=== PATIENT | female | born 1980 | race Caucasian/White ===

== ENCOUNTER 2016-11-10 19:18 | Emergency (ER) | payer OTHER ==
[2016-11-10] MEDS ORDERED: SODIUM CHLORIDE 0.9% 1,000 ML IV STA (19:23)
--- NOTE | 2016-11-10 19:45 | ED ---
Chest Pain HPI - General Chief Complaint: Chest Pain Stated Complaint: Chest Pain Time Seen by Provider: 11/10/16 19:23 Source: EMS, RN notes reviewed Mode of arrival: EMS Limitations: no limitations - History of Present Illness Initial Comments: Patient is a 36-year-old female presents to the emergency room for evaluation of chest pain. Patient states having on and off chest pain for the past week. Patient states chest pain became worse around 11 AM this morning. Patient states she went to [facility] and they sent her here for further evaluation. Patient states chest pain is midsternal feels a pressure-like type pain. Patient states she is having 5 out of 10 pain. Patient states she's been given aspirin and nitroglycerin and the EMS with little relief of symptoms. Patient states she does feel short of breath. Patient does admit that she smokes 1 pack per day. Patient does state she has a history of chest pain. Patient states she has followed up with a field attendant a few months ago and received an echocardiogram with no significant findings. Patient states she takes Topamax for migraines and Prilosec daily. Patient states she hasn't taken the Prilosec for the past few days. Patient denies nausea or vomiting. Patient denies headache or dizziness. Patient denies paresthesias. Patient denies recent trauma to her chest. Patient denies any recent heavy lifting. Patient denies fevers or chills. - Related Data Home Medications Medication Instructions Recorded Confirmed Calcium Carbonate [Tums] 500 mg PO QID PRN 11/10/16 11/10/16 Omeprazole Unknown Strength 1 cap PO DAILY PRN 11/10/16 11/10/16 Topiramate [Topamax] 50 mg PO BID 11/10/16 11/10/16 Allergies Allergy/AdvReac Type Severity Reaction Status Date / Time codeine Allergy Itching Verified 11/10/16 19:51 Sulfa (Sulfonamide Allergy Anaphylaxis Verified 11/10/16 19:51 Antibiotics) Review of Systems ROS Statement: Those systems with pertinent positive or pertinent negative responses have been documented in the HPI. ROS Other: All systems not noted in ROS Statement are negative. EKG Findings - EKG Comments: EKG Findings:: Normal sinus rhythm with sinus arrhythmia, ventricular rate 76 bpm, MO interval 144 ms, QRS duration 72 ms, QT/QTC 362/470 ms Past Medical History Past Medical History: GERD/Reflux, Renal Disease Additional Past Medical History / Comment(s): ANEMIA, PVC'S, MURMUR DETECTED WHEN PT WAS , UTI , STRESS INCONT. History of Any Multi-Drug Resistant Organisms: None Reported Past Surgical History: Cholecystectomy, Tonsillectomy Additional Past Surgical History / Comment(s): LAPAROSCOPY Past Anesthesia/Blood Transfusion Reactions: Previous Problems w/ Anesthesia Additional Past Anesthesia/Blood Transfusion Reaction / Comment(s): BP BOTTOMED OUT AFTER VERSED GIVEN 0/T Past Psychological History: No Psychological Hx Reported Smoking Status: Current every day smoker Past Alcohol Use History: Occasional Past Drug Use History: None Reported - Past Family History Sister(s) Family Medical History: Cancer Additional Family Medical History / Comment(s): LUNG CANCER Mother Family Medical History: Cancer Additional Family Medical History / Comment(s): LUNG CA Father Family Medical History: Myocardial Infarction ([place]) Additional Family Medical History / Comment(s): AT AGE 52 FROM MASSIVE [place] General Exam - General Exam Comments Initial Comments: Sitting in exam room, no distress. Limitations: no limitations General appearance: alert, in no apparent distress Head exam: Present: atraumatic, normocephalic, normal inspection Eye exam: Present: normal appearance Pupils: Present: normal accommodation ENT exam: Present: normal exam Neck exam: Present: normal inspection, full ROM. Absent: tenderness, lymphadenopathy Respiratory exam: Present: normal lung sounds bilaterally. Absent: respiratory distress, chest wall tenderness Cardiovascular Exam: Present: regular rate, normal rhythm, normal heart sounds GI/Abdominal exam: Present: soft, normal bowel sounds. Absent: distended, tenderness, guarding, rebound, rigid Extremities exam: Present: normal inspection Back exam: Present: normal inspection Neurological exam: Present: alert, oriented X3, CN II-XII intact, normal gait Psychiatric exam: Present: normal affect, normal mood Skin exam: Present: warm, dry, intact, normal color. Absent: rash Course Vital Signs 11/10/16 11/10/16 11/10/16 19:20 19:23 19:48 Temperature 98.2 F Pulse Rate 95 80 Respiratory 18 18 18 Rate Blood Pressure 118/66 122/76 O2 Sat by Pulse 100 100 Oximetry 11/10/16 21:16 Temperature 97.8 F Pulse Rate 66 Respiratory 16 Rate Blood Pressure 102/63 O2 Sat by Pulse 100 Oximetry Chest Pain MDM - MDM Patient is a 36-year-old female presents to the emergency room for evaluation of chest pain. Patient does have a history of chest pain. Patient currently sees a field attendant. Cardiac enzymes within normal limits. Chest x-ray shows no acute findings. Patient declined anything for pain while she was here. Discussed results with patient. Advised patient to follow-up with field attendant for further evaluation. Patient states she understands everything that was discussed with her. Return parameters discussed. Case discussed with Dr. Francis who agrees with the treatment plan. Disposition Clinical Impression: Chest pain Disposition: HOME SELF-CARE Condition: Good Instructions: Chest Pain (ED) Additional Instructions: Please follow-up with primary care provider or field attendant for further evaluation. If any new symptom arises or symptoms worsen, return to ER as soon as possible. Referrals: Michael Potter MD [Primary Care Provider] - 1-2 days Time of Disposition: 21:29
[2016-11-10 19:55] LABS: Basophils # (A) 0.1 k/uL (0-0.2); Basophils % (A) 1 %; CH 29.8; CHCM 33.6; Eosinophils # (A) 0.1 k/uL (0-0.7); Eosinophils % (A) 2 %; HCT 36.4 % (34.0-46.0); HDW 2.46; HGB 12.1 gm/dL (11.4-16.0); Luc # (Auto) 0.12; Luc % (Auto) 1; Lymphocytes # (A) 2.6 k/uL (1.0-4.8); Lymphocytes % (A) 31 %; MCH 29.6 pg (25.0-35.0); MCHC 33.1 g/dL (31.0-37.0); MCV 89.4 fL (80.0-100.0); Mean Platelet Volume 7.6; Monocytes # (A) 0.4 k/uL (0-1.0); Monocytes % (A) 5 %; Neutrophils # (A) 5.1 k/uL (1.3-7.7); Neutrophils % (A) 61 %; RBC 4.08 m/uL (3.80-5.40); RDW 14.9 % (11.5-15.5); WBC 8.4 k/uL (3.8-10.6); WBC (Perox) 8.18
[2016-11-10 20:06] LABS: ALT 26 U/L (9-52); AST 19 U/L (14-36); Alkaline Phosphatase 92 U/L (38-126); Amylase 46 U/L (30-110); Anion Gap 8 mmol/L; Blood Urea Nitrogen 5 mg/dL (7-17); Calcium 9.3 mg/dL (8.4-10.2); Carbon Dioxide 23 mmol/L (22-30); Chloride 108 mmol/L (98-107); Glucose 90 mg/dL (74-99); Non-African American GFR(MDRD) >60 (>60 ml/min/1.73 sqM); Potassium 4.1 mmol/L (3.5-5.1); Sodium 139 mmol/L (137-145); Total Bilirubin 0.3 mg/dL (0.2-1.3); Total Protein 6.4 g/dL (6.3-8.2)
[2016-11-10 20:07] LABS: Partial Thromboplastin Time 22.8 sec (22.0-30.0)
--- NOTE | 2016-11-10 20:15 | XR ---
EXAMINATION TYPE: XR chest 2V DATE OF EXAM: 11/10/2016 COMPARISON: 02/25/2016 HISTORY: Chest pain TECHNIQUE: Frontal and lateral views of the chest are obtained. FINDINGS: Heart and mediastinum are normal. Lungs are clear. Diaphragm is normal. There are chest le ads. Bony thorax is intact. IMPRESSION: Normal chest. No change.
[2016-11-10 20:16] LABS: Creatine Kinase 99 U/L (30-135)
[2016-11-10 20:28] LABS: Creatine Kinase MB <0.2 ng/mL (0.0-2.4); Troponin I <0.012 ng/mL (0.000-0.034)
[2016-11-10 22:09] VITALS: BP 100/66; PULSE 68; RESP 18; TEMP 98.2
== END 2016-11-10 22:09 | disposition home or self-care (01) ==
LOC: EC 19:18
DX: R07.9 Chest pain, unspecified (principal); F17.200 Nicotine dependence, unspecified, uncomplicated; Z88.2 Allergy status to sulfonamides; Z88.5 Allergy status to narcotic agent; Z79.899 Other long term (current) drug therapy
CPT/HCPCS: 36415; 71020; 80053; 82150; 82550; 82553; 83690; 83735; 84484; 85025; 85379; 85610; 85730; 93005; 96360; 99285

== ENCOUNTER → 2017-12-12 | Outpatient (CLI) | payer OTHER ==
--- NOTE | 2017-12-13 08:26 | US ---
EXAMINATION TYPE: US pelvic complete DATE OF EXAM: 12/12/2017 COMPARISON: NONE CLINICAL HISTORY: N93.8 dysfunctional uterine bleeding. DUB TECHNIQUE: Transabdominal (TA). Transabdominal sonographic images of the pelvis were acquired. EXAM MEASUREMENTS: Uterus: 7.3 x 4.3 x 5.6 cm Endometrial Stripe: 0.87 cm Right Ovary: 3.6 x 1.7 x 2.0 cm Left Ovary: 3.6 x 1.7 x 2.9 cm 1. Uterus: Anteverted wnl 2. Endometrium: wnl 3. Right Ovary: wnl 4. Left Ovary: wnl 5. Bilateral Adnexa: wnl 6. Posterior cul-de-sac: wnl IMPRESSION: 1. No acute process.
== END | disposition home or self-care (01) ==
LOC: RADUSMAIN 17:11
PROVIDERS: ATTEND Obstetrics & Gynecology
DX: N93.8 Other specified abnormal uterine and vaginal bleeding (principal)
CPT/HCPCS: 36415; 76856; 83001; 83002; 84146

== ENCOUNTER → 2017-12-27 | Outpatient (CLI) | payer OTHER ==
[2017-12-27 12:45] LABS: Cholesterol 195 mg/dL (<200); Glucose 75 mg/dL (74-99); HDL Cholesterol 66 mg/dL (40-60); LDL Cholesterol,Calculated 115 mg/dL (0-99); Triglycerides 68 mg/dL (<150)
[2017-12-27 19:53] LABS: DHEA Sulfate 193.7 ug/dL (26.0-430.0); Sex Horm Bind Glob 69.3 nmol/L (10.84-180.00)
[2017-12-27 19:57] LABS: Progesterone 0.2 ng/mL
== END | disposition home or self-care (01) ==
LOC: LABWHC1 11:09
PROVIDERS: ATTEND Obstetrics & Gynecology
DX: N93.8 Other specified abnormal uterine and vaginal bleeding (principal)
CPT/HCPCS: 36415; 80061; 82627; 82670; 82947; 83001; 83002; 83525; 84144; 84270; 84402

== ENCOUNTER → 2018-02-02 | Outpatient (CLI) | payer OTHER ==
[2018-02-02 15:38] LABS: Basophils % (A) 0 %; Eosinophils # (A) 0.2 k/uL (0-0.7); Eosinophils % (A) 2 %; HCT 42.9 % (34.0-46.0); HGB 13.7 gm/dL (11.4-16.0); Hypochromasia Slight; Lymphocytes # (A) 2.5 k/uL (1.0-4.8); Lymphocytes % (A) 31 %; MCH 30.6 pg (25.0-35.0); MCV 95.8 fL (80.0-100.0); Mean Platelet Volume 7.5; Monocytes # (A) 0.4 k/uL (0-1.0); Monocytes % (A) 5 %; Neutrophils # (A) 4.8 k/uL (1.3-7.7); Neutrophils % (A) 60 %; Platelet Count 346 k/uL (150-450); RBC 4.48 m/uL (3.80-5.40); RDW 14.6 % (11.5-15.5)
== END ==
LOC: LABPAT 14:53
PROVIDERS: ATTEND Obstetrics & Gynecology
DX: Z01.812 Encounter for preprocedural laboratory examination (principal)
CPT/HCPCS: 85025

== ENCOUNTER 2018-02-09 07:54 | Day surgery (SDC) | payer OTHER ==
[2018-01-20 15:57] VITALS: BMI 27.3
--- NOTE | 2018-01-25 08:43 | P.HPOB ---
History of Present Illness H&P Date: 01/25/18 Chief Complaint: Dysfunctional uterine bleeding Mayelin is a 29-year-old female with dysfunctional uterine bleeding. Symptoms have been worsening over the last several months and bleeding is very heavy and very disruptive. She is therefore scheduled for a D&C with hysteroscopy to try and verified no potential hyperplastic tissue. Risks/benefits/alternatives to this procedure were discussed with the patient in detail and all questions were answered for her prior to proceeding to the operating room. Past Medical History Past Medical History: Chest Pain / Angina, GERD/Reflux, Renal Disease Additional Past Medical History / Comment(s): LEFT RENAL ATROPHY., ANEMIA, PVC'S , DDD., STATES HAVING 2 MENSTRUAL PERIOD /MONTH. History of Any Multi-Drug Resistant Organisms: None Reported Past Surgical History: Bladder Surgery, Cholecystectomy, Tonsillectomy, Tubal Ligation Additional Past Surgical History / Comment(s): LAPAROSCOPY, BLADDER SUSPENSION, INTERIOR WALL REPAIR. Past Anesthesia/Blood Transfusion Reactions: Previous Problems w/ Anesthesia Additional Past Anesthesia/Blood Transfusion Reaction / Comment(s): BP BOTTOMED OUT AFTER VERSED GIVEN Past Psychological History: No Psychological Hx Reported Smoking Status: Current every day smoker Past Alcohol Use History: Occasional Additional Past Alcohol Use History / Comment(s): STARTED SMOKING AT AGE 15., SMOKES 3-7 CIG PER DAY. Past Drug Use History: None Reported - Past Family History Sister(s) Family Medical History: Cancer Additional Family Medical History / Comment(s): LUNG CANCER Mother Family Medical History: Cancer Additional Family Medical History / Comment(s): LUNG CA Father Family Medical History: Cancer, Myocardial Infarction ([place]) Additional Family Medical History / Comment(s): AT AGE 52 FROM [place]ASSIVE [place] Medications and Allergies Home Medications Medication Instructions Recorded Confirmed Type HYDROcodone/APAP 5-325MG [[place] 1 tab PO DIRECTED PRN 01/20/18 01/20/18 History 5-325] Ibuprofen [Motrin] 800 mg PO DAILY PRN 01/20/18 01/20/18 History Topiramate [Topamax] 200 mg PO BID 01/20/18 01/20/18 History Allergies Allergy/AdvReac Type Severity Reaction Status Date / Time codeine Allergy Itching Verified 01/20/18 15:35 Sulfa (Sulfonamide Allergy Anaphylaxis Verified 01/20/18 15:35 Antibiotics) adhesive tape AdvReac Unknown TEARS SKIN Verified 01/20/18 15:57 Exam Osteopathic Statement: *. No significant issues noted on an osteopathic structural exam other than those noted in the History and Physical/Consult. - OBG Physical Exam Breast: both: normal (no masses) Abdomen: bowel sounds normal, no diffuse tenderness, no bruit present, no guarding noted, no hepatomegaly, no splenomegaly, no mass Vulva: both: normal Vagina: normal moisture, no discharge Cervix: no lesion, no discharge Uterus: normal size, normal contour Adnexa: both: normal Anus/Rectum: normal perianal skin, no rectal mass, no hemorrhoids, heme negative
[~2018-02-09 07:54] MED LIST: DEXAMETHASONE SOD PHOSPHATE 10 MG/ML 1 ML VIAL IV ONE; LACTATED RINGERS 1,000 ML IV SCH; ONDANSETRON 4 MG/2 ML VIAL IVP ONE; Pre Op ABX Message 1 EACH MISC MISCELLANE ONE; fentaNYL (PF) 50 MCG/ML 2 ML AMP IV PRN
[2018-02-09] MEDS ORDERED: LIDOCAINE 1% 20 ML VIAL (10MG/ML) FOR IV START INTRADERMA ONE (08:46)
--- NOTE | 2018-02-09 09:12 | P.HPOB ---
History of Present Illness H&P Date: 02/09/18 Chief Complaint: Menorrhagia/dysfunctional uterine bleeding Mayelin is a 37-year-old female with heavy irregular bleeding. She has had 2 periods a month each month the last at least 6 months and while her ultrasound labs have been unremarkable we are planning a D&C with hysteroscopy to rule out any other pathology. Risks/benefits/alternatives were reviewed with the patient in detail and all questions were answered for her prior to proceeding to the operating room. Past Medical History Past Medical History: Chest Pain / Angina, GERD/Reflux, Renal Disease Additional Past Medical History / Comment(s): LEFT RENAL ATROPHY., ANEMIA, PVC'S , DDD., STATES HAVING 2 MENSTRUAL PERIOD /MONTH, currently w/cold & sinus congestion-seeing PCP today History of Any Multi-Drug Resistant Organisms: None Reported Past Surgical History: Bladder Surgery, Cholecystectomy, Tonsillectomy, Tubal Ligation Additional Past Surgical History / Comment(s): LAPAROSCOPY, BLADDER SUSPENSION, INTERIOR WALL REPAIR. Past Anesthesia/Blood Transfusion Reactions: Previous Problems w/ Anesthesia Additional Past Anesthesia/Blood Transfusion Reaction / Comment(s): BP BOTTOMED OUT AFTER VERSED GIVEN Smoking Status: Current every day smoker - Past Family History Sister(s) Family Medical History: Cancer Additional Family Medical History / Comment(s): LUNG CANCER Mother Family Medical History: Cancer Additional Family Medical History / Comment(s): LUNG CA Father Family Medical History: Cancer, Myocardial Infarction ([place]) Additional Family Medical History / Comment(s): AT AGE 52 FROM [place]IVE [place] Medications and Allergies Home Medications Medication Instructions Recorded Confirmed Type HYDROcodone/APAP 5-325MG [[place] 1 tab PO DIRECTED PRN 01/20/18 02/09/18 History 5-325] Ibuprofen [Motrin] 800 mg PO DAILY PRN 01/20/18 02/08/18 History Topiramate [Topamax] 200 mg PO BID 01/20/18 02/09/18 History Allergies Allergy/AdvReac Type Severity Reaction Status Date / Time codeine Allergy Itching Verified 02/09/18 08:22 Sulfa (Sulfonamide Allergy Anaphylaxis Verified 02/09/18 08:22 Antibiotics) adhesive tape AdvReac Unknown TEARS SKIN Verified 02/09/18 08:22 Exam Osteopathic Statement: *. No significant issues noted on an osteopathic structural exam other than those noted in the History and Physical/Consult. Vital Signs Temp Pulse Resp BP Pulse Ox 02/09/18 08:23 98 F 77 16 115/80 100 - OBG Physical Exam Breast: both: normal (no masses) Abdomen: bowel sounds normal, no diffuse tenderness, no bruit present, no guarding noted, no hepatomegaly, no splenomegaly, no mass Vulva: both: normal Vagina: normal moisture, no discharge Cervix: no lesion, no discharge Uterus: normal size, normal contour Adnexa: both: normal Anus/Rectum: normal perianal skin, no rectal mass, no hemorrhoids, heme negative
[2018-02-09] MEDS ORDERED: MIDAZOLAM 2 MG/2 ML VIAL IV ONE (09:28)
[2018-02-09] MEDS ORDERED: MORPHINE SULFATE 10 MG/ML SYRINGE ONE (10:10)
[2018-02-09] MEDS ORDERED: KETOROLAC 30 MG/ML 1 ML VIAL ONE (10:10)
[2018-02-09] MEDS ORDERED: MIDAZOLAM 2 MG/2 ML VIAL ONE (10:10)
[2018-02-09] MEDS ORDERED: fentaNYL (PF) 50 MCG/ML 2 ML AMP ONE (10:10)
--- NOTE | 2018-02-09 10:34 | P.OP ---
Date of Procedure: 02/09/18 Preoperative Diagnosis: Dysfunctional uterine bleeding Postoperative Diagnosis: Same Procedure(s) Performed: D&C with hysteroscopy Anesthesia: PABLO SILVA Surgeon: Farooq Valdes Estimated Blood Loss (ml): 5 Pathology: other (Uterine curettings) Condition: stable Disposition: same day Operative Findings: Tissue pathology pending Description of Procedure: Patient was taken to the operating suite where a general anesthetic was found be adequate. She was prepped and draped in the normal sterile fashion and placed in the dorsal lithotomy position initially a weighted speculum was inserted into the vagina and the anterior lip of cervix was identified and grasped with Allis clamp. Cervix was then dilated and camera was inserted. Proliferative endometrium with possible small polyp was noted therefore camera was removed and sharp curettings of endometrium were obtained. All tissues collected and placed on Telfa and sent to pathology for evaluation. Once this was accomplished all incidents removed sponge, lap, needle counts were all correct 2. Patient was then taken to the recovery room in stable and satisfactory condition. Plan - Discharge Summary New Discharge Prescriptions: New Ibuprofen [Motrin] 600 mg PO Q6HR PRN #30 tab PRN Reason: Pain No Action HYDROcodone/APAP 5-325MG [[place] 5-325] 1 tab PO DIRECTED PRN PRN Reason: Migraine Headache Topiramate [Topamax] 200 mg PO BID Ibuprofen [Motrin] 800 mg PO DAILY PRN PRN Reason: Pain Discharge Medication List HYDROcodone/APAP 5-325MG [[place] 5-325] 1 tab PO DIRECTED PRN 01/20/18 [ History] Ibuprofen [Motrin] 800 mg PO DAILY PRN 01/20/18 [History] Topiramate [Topamax] 200 mg PO BID 01/20/18 [History] Ibuprofen [Motrin] 600 mg PO Q6HR PRN #30 tab 02/09/18 [Rx] Follow up Appointment(s)/Referral(s): Farooq Valdes DO [Doctor of Osteopathic Medicine] - 10 Days Activity/Diet/Wound Care/Special Instructions: No heavy lifting, limit stairs and driving, and pelvic rest. If any high temperatures, heavy bleeding, or severe pain call my office Discharge Disposition: HOME SELF-CARE
[2018-02-09 10:51] VITALS: TEMP 97.4
[2018-02-09 10:54] VITALS: RESP 16
[2018-02-09] MEDS ORDERED: HYDROmorphone 1 MG/ML 1 ML SYRINGE IVP ONE ×2 (10:59→11:05)
[2018-02-09 11:28] VITALS: PULSE 68
[2018-02-09 11:50] VITALS: BP 101/58
[2018-02-09] MEDS ORDERED: HYDROcodone/APAP 5-325MG 1 EACH TAB PO ONE (12:09)
== END 2018-02-09 12:50 | disposition home or self-care (01) ==
LOC: OR 07:54
PROVIDERS: ATTEND Obstetrics & Gynecology
DX: N93.8 Other specified abnormal uterine and vaginal bleeding (principal); K21.9 Gastro-esophageal reflux disease without esophagitis; F17.210 Nicotine dependence, cigarettes, uncomplicated; I49.3 Ventricular premature depolarization; D64.9 Anemia, unspecified; Z98.51 Tubal ligation status; Z79.899 Other long term (current) drug therapy; Z88.5 Allergy status to narcotic agent; Z88.2 Allergy status to sulfonamides; Z91.048 Other nonmedicinal substance allergy status
CPT/HCPCS: 81025; 88305; 58558; J2250; J1100; J2270; J2405; J3010; J1885; J1170

== ENCOUNTER 2018-03-28 00:05 | Observation (INO) | payer OTHER ==
[2018-03-28] MEDS ORDERED: ASPIRIN 81 MG PO STA (00:16)
[2018-03-28] MEDS ORDERED: NITROGLYCERIN SL TABS 0.4 MG TAB SUBLINGUAL STA (00:40)
[2018-03-28 00:46] LABS: Basophils # (A) 0.1 k/uL (0-0.2); Basophils % (A) 1 %; Eosinophils # (A) 0.2 k/uL (0-0.7); Eosinophils % (A) 2 %; HCT 42.8 % (34.0-46.0); HGB 13.5 gm/dL (11.4-16.0); Lymphocytes # (A) 3.1 k/uL (1.0-4.8); Lymphocytes % (A) 30 %; MCHC 31.6 g/dL (31.0-37.0); Monocytes # (A) 0.6 k/uL (0-1.0); Monocytes % (A) 6 %; Neutrophils # (A) 6.2 k/uL (1.3-7.7); Neutrophils % (A) 60 %; Platelet Count 404 k/uL (150-450); RDW 14.1 % (11.5-15.5); WBC 10.4 k/uL (3.8-10.6)
[2018-03-28 00:54] LABS: ALT 24 U/L (9-52); AST 18 U/L (14-36); Albumin 3.9 g/dL (3.5-5.0); Alkaline Phosphatase 58 U/L (38-126); Anion Gap 8 mmol/L; Blood Urea Nitrogen 7 mg/dL (7-17); Calcium 9.2 mg/dL (8.4-10.2); Carbon Dioxide 22 mmol/L (22-30); Chloride 108 mmol/L (98-107); Glucose 103 mg/dL (74-99); Lipase 96 U/L (23-300); Potassium 3.8 mmol/L (3.5-5.1); Sodium 138 mmol/L (137-145); Total Bilirubin 0.2 mg/dL (0.2-1.3); Total Protein 6.5 g/dL (6.3-8.2)
[2018-03-28 00:59] LABS: Prothrombin Time 9.8 sec (9.0-12.0)
--- NOTE | 2018-03-28 01:06 | XR ---
EXAMINATION TYPE: XR chest 2V DATE OF EXAM: 03/28/2018 COMPARISON: 11/10/2016 HISTORY: Chest pain TECHNIQUE: Frontal and lateral views of the chest are obtained. FINDINGS: Heart and mediastinum are normal. Lungs are clear. Diaphragm is normal. Bony thorax appear s normal. There are chest leads. IMPRESSION: Normal chest. No change.
[2018-03-28 01:07] LABS: Creatine Kinase 102 U/L (30-135)
--- NOTE | 2018-03-28 01:17 | ED ---
Chest Pain HPI - General Source: patient, RN notes reviewed Mode of arrival: ambulatory Limitations: no limitations <Cachorro Vasquez - Last Filed: 03/28/18 03:44> <Karen Mohan - Last Filed: 04/01/18 21:40> - General Chief Complaint: Chest Pain Stated Complaint: chest pain Time Seen by Provider: 03/28/18 00:16 - History of Present Illness Initial Comments: This a 37-year-old female presents emergency Department chief complaint of left- sided chest pain. Patient states pain started one hour prior arrival. She states she was just sitting down talking with the pain started. She states it feels 6 sitting on her chest currently in the central to left-sided and radiates her left shoulder. Patient denies any nausea, vomiting or diaphoresis , headache or dizziness. Patient states she is a daily smoker denies any current shortness breath this time. Patient denies history of hypertension, hyperlipidemia or diabetes. Patient states she does see cardiology for palpitations in tachycardia. Patient states that she has stress test but does not know the results states that she also had an echo which she believes she was told that she had regurgitation. (Cachorro Vasquez) - Related Data Home Medications Medication Instructions Recorded Confirmed HYDROcodone/APAP 5-325MG [[place] 1 tab PO DAILY PRN 01/20/18 03/28/18 5-325] Topiramate [Topamax] 200 mg PO DAILY 01/20/18 03/28/18 Allergies Allergy/AdvReac Type Severity Reaction Status Date / Time codeine Allergy Itching Verified 03/28/18 08:20 Sulfa (Sulfonamide Allergy Anaphylaxis Verified 03/28/18 08:20 Antibiotics) adhesive tape AdvReac Unknown TEARS SKIN Verified 03/28/18 08:20 Review of Systems ROS Other: All systems not noted in ROS Statement are negative. <Cachorro Vasquez - Last Filed: 03/28/18 03:44> ROS Other: All systems not noted in ROS Statement are negative. <Karen Mohan - Last Filed: 04/01/18 21:40> ROS Statement: Those systems with pertinent positive or pertinent negative responses have been documented in the HPI. EKG Findings - EKG Comments: EKG Findings:: EKG performed at 0:19 sinus tachycardia rate of 11 [place] 146 QRS 74 QT/QTC 342/443. Repeat EKG performed at 3:19 normal sinus rhythm rate of 63 [place] 152 QRS 74 QT/QTC 396/45 slight deepening of the inverted T waves noted T3 <Cachorro Vasquez - Last Filed: 03/28/18 03:44> Past Medical History Past Medical History: Chest Pain / Angina, GERD/Reflux, Renal Disease Additional Past Medical History / Comment(s): LEFT RENAL ATROPHY., ANEMIA, PVC'S , DDD., STATES HAVING 2 MENSTRUAL PERIOD /MONTH. History of Any Multi-Drug Resistant Organisms: None Reported Past Surgical History: Bladder Surgery, Cholecystectomy, Tonsillectomy, Tubal Ligation Additional Past Surgical History / Comment(s): LAPAROSCOPY, BLADDER SUSPENSION, INTERIOR WALL REPAIR. Past Anesthesia/Blood Transfusion Reactions: Previous Problems w/ Anesthesia Additional Past Anesthesia/Blood Transfusion Reaction / Comment(s): BP BOTTOMED OUT AFTER VERSED GIVEN Past Psychological History: No Psychological Hx Reported Smoking Status: Current every day smoker Past Alcohol Use History: Occasional Past Drug Use History: None Reported - Past Family History Sister(s) Family Medical History: Cancer Additional Family Medical History / Comment(s): LUNG CANCER Mother Family Medical History: Cancer Additional Family Medical History / Comment(s): LUNG CA Father Family Medical History: Cancer, Myocardial Infarction ([place]) Additional Family Medical History / Comment(s): AT AGE 52 FROM MASSIVE [place] <Cachorro Vasquez M - Last Filed: 03/28/18 03:44> - Past Family History Sister(s) Family Medical History: Cancer Additional Family Medical History / Comment(s): Patient has 2 sisters, one from brain cancer and one from lung cancer. Mother Family Medical History: Cancer Additional Family Medical History / Comment(s): Mother of lung cancer at age 71. Father Family Medical History: Cancer, Myocardial Infarction ([place]) Additional Family Medical History / Comment(s): AT AGE 52 FROM MASSIVE [place] Brother(s) Additional Family Medical History / Comment(s): Patient has 1 brother that is alive with history of hypertension and has history of myocardial infarction. Patient has 6 children, 3 boys and 3 girls with no major medical problems. <Karen Mohan - Last Filed: 04/01/18 21:40> General Exam Limitations: no limitations General appearance: alert, in no apparent distress Head exam: Present: atraumatic, normocephalic, normal inspection Neck exam: Present: normal inspection. Absent: tenderness, meningismus, lymphadenopathy Respiratory exam: Present: normal lung sounds bilaterally. Absent: respiratory distress, wheezes, rales, rhonchi, stridor, chest wall tenderness Cardiovascular Exam: Present: normal rhythm, tachycardia, normal heart sounds. Absent: systolic murmur, diastolic murmur, rubs, gallop, clicks GI/Abdominal exam: Present: soft, normal bowel sounds. Absent: distended, tenderness, guarding, rebound, rigid <Cachorro Vasquez - Last Filed: 03/28/18 03:44> Vital Signs 03/28/18 03/28/18 03/28/18 00:11 00:15 01:04 Temperature 98.2 F Pulse Rate 104 H 92 Respiratory 18 22 18 Rate Blood Pressure 114/71 102/76 O2 Sat by Pulse 100 99 Oximetry 03/28/18 03/28/18 03/28/18 01:30 02:00 02:30 Temperature Pulse Rate 93 78 75 Respiratory Rate Blood Pressure 102/76 104/63 93/67 O2 Sat by Pulse 99 98 99 Oximetry 03/28/18 03/28/18 03/28/18 03:00 03:30 04:00 Temperature Pulse Rate 94 69 78 Respiratory Rate Blood Pressure 112/69 98/73 108/79 O2 Sat by Pulse 98 99 Oximetry 03/28/18 04:05 Temperature Pulse Rate Respiratory 18 Rate Blood Pressure O2 Sat by Pulse Oximetry Chest Pain MDM <Cachorro Vasquez - Last Filed: 03/28/18 03:44> <Karen Mohan - Last Filed: 04/01/18 21:40> - MDM I personally saw and examined the patient. I reviewed and agree with the mid- level provider findings including all diagnostic interpretations and treatment plans as written unless otherwise stated. I was present for childs portions of any procedures performed. We'll plan for admission (Karen Mohan) Disposition <Cachorro Vasquez - Last Filed: 03/28/18 03:44> <Karen Mohan - Last Filed: 04/01/18 21:40> Clinical Impression: Chest pain Disposition: ADMITTED IP TO THIS HOSP
[2018-03-28 01:20] LABS: Creatine Kinase MB 0.4 ng/mL (0.0-2.4); Troponin I <0.012 ng/mL (0.000-0.034)
[2018-03-28 01:24] LABS: Partial Thromboplastin Time 21.3 sec (22.0-30.0)
[2018-03-28] MEDS ORDERED: SODIUM CHLORIDE 0.9% 500 ML 500 ML IV ONE (01:44)
--- NOTE | 2018-03-28 02:41 | CT ---
EXAMINATION TYPE: CT chest angio for PE DATE OF EXAM: 03/28/2018 COMPARISON: None HISTORY: chest pain CT DLP: 236.8 mGycm Automated exposure control for dose reduction was used. CONTRAST: CT Chest for pulmonary embolism performed with with IV Contrast, patient injected with 70mL mL of Iso reinaldo 370. FINDINGS: There are 3-D post processed images. There is mild subsegmental atelectasis at the lung bases. Lungs are clear of consolidation. There is no evidence of a pulmonary mass. There is no pleural effusion. Heart size is normal. There is no medi astinal adenopathy. There is no pericardial effusion. There are no hilar masses. Thoracic aorta appears normal without evidence of aneurysm or dissection. There is normal contrast opacification of the pulmonary arteries. There are no filling defects. The b mihaela thorax appears intact. IMPRESSION: Negative CT angiogram of the chest. No evidence of pulmonary embolism.
[2018-03-28] MEDS ORDERED: NITROGLYCERIN OINT 1 INCH/GM PACKET TOPICAL STA (03:24)
[2018-03-28] MEDS ORDERED: NITROGLYCERIN SL TABS 0.4 MG TAB SUBLINGUAL PRN (03:45)
[2018-03-28 04:19] LABS: Creatine Kinase 77 U/L (30-135)
[2018-03-28] MEDS ORDERED: ACETAMINOPHEN TAB 325 MG TAB PO PRN (04:29)
[2018-03-28 04:32] LABS: Creatine Kinase MB 0.3 ng/mL (0.0-2.4); Troponin I <0.012 ng/mL (0.000-0.034)
[2018-03-28] MEDS: IBUPROFEN 600 MG TAB PO SCH ×2 (04:41→12:20)
[2018-03-28 07:35] VITALS: BP 98/61; PULSE 64; RESP 18; TEMP 97.9
--- NOTE | 2018-03-28 10:03 | P.CRDCN ---
History of Present Illness History of present illness: This is a pleasant 37-year-old female with no significant past medical history. She is a daily smoker. She denies history of coronary artery disease, hypertension, dyslipidemia or diabetes mellitus. She states yesterday she was sitting down talking on the phone when she started experiencing a heavy pressure in her chest in the mid-sternal region with radiation to the left arm with shortness of breath, nausea and racing heart. No specific aggravating factor. The pain lasted approximately 2 hours until she fell asleep. She woke up this morning with no further symptoms. She is seen and examined laying flat in bed in no acute distress. She has followed with Dr. Zuniga in the office in the past with similar symptoms of chest discomfort. Stress testing has been recommended. Most recent stress test performed was 2015. She has never had a catheterization in the past. EKG on admission reveals sinus mechanism with poor R-wave progression. Chest xray negative for an acute cardiopulmonary process. CT angio of the chest negative for PE. Laboratory data reviewed, WBC 10.4, hgb 13.5, plt 404, d-dimer 0.65, sodium 138 , potassium 3.8, creatinine 0.81, magnesium 2.0, cardiac enzymes negative x2. She takes no daily cardiac medications. At the time of my exam: CONSTITUTIONAL: Denies fever. Denies chills. EYES: Denies blurred vision. Denies vision changes. Denies eye pain. EARS, NOSE, MOUTH & THROAT: Denies headache. Denies sore throat. Denies ear pain. CARDIOVASCULAR: Denies chest pain. Denies shortness of breath. Denies orthopnea. Denies PND. Denies palpitations. RESPIRATORY: Denies cough. GASTROINTESTINAL: Denies abdominal pain. Denies diarrhea. Denies constipation. Denies nausea. Denies vomiting. MUSCULOSKELETAL: Denies myalgias. INTEGUMENTARY: Denies pruitis. Denies rash. NEUROLOGIC: Denies numbness. Denies tingling. Denies weakness. PSYCHIATRIC: Denies anxiety. Denies depression. ENDOCRINE: Denies fatigue. Denies weight change. Denies polydipsia. Denies polyurina. GENITOURINARY: Denies burning, hematuria or urgency with micturation. HEMATOLOGIC: Denies history of anemia. Denies bleeding. Blood pressure 90/61 heart rate 64 afebrile maintaining oxygen saturation on nasal cannula GENERAL: This is a 37-year-old female in no apparent distress at the time of my examination. HEENT: Head is atraumatic, normocephalic. Pupils are equal, round. Sclerae anicteric. Conjunctivae are clear. Mucous membranes of the mouth are moist. Neck is supple. There is no jugular venous distention. No carotid bruit is heard. LUNGS: Clear to auscultation no wheezes, rales or rhonchi. No chest wall tenderness is noted on palpation or with deep breathing. HEART: Regular rate and rhythm without murmurs, rubs or gallops. S1 and S2 heard. ABDOMEN: Soft, nontender. Bowel sounds are heard. No organomegaly noted. EXTREMITIES: No evidence of peripheral edema and no calf tenderness noted. VASCULAR: Radial and dorsalis pedis pulses palpated, no evidence of clubbing. NEUROLOGIC: Patient is awake, alert and oriented x3. ASSESSMENT Chest pain, atypical. An acute coronary event has been ruled out with no EKG evidence of ischemia and negative cardiac enzymes. Chronic nicotine dependence PLAN An acute coronary event has been ruled out. Discontinue nitropaste. Perform stress echocardiogram to assess for stress induced ischemia. Smoking cessation recommended. If stress test is normal she is stable for discharge home. Thank you kindly for this consultation. Nurse Practitioner note has been reviewed, I agree with a documented findings and plan of care. Patient was seen and examined. Past Medical History Past Medical History: Chest Pain / Angina, GERD/Reflux, Renal Disease Additional Past Medical History / Comment(s): LEFT RENAL ATROPHY., ANEMIA, PVC'S , DDD., prolonged periods History of Any Multi-Drug Resistant Organisms: None Reported Past Surgical History: Bladder Surgery, Cholecystectomy, Tonsillectomy, Tubal Ligation Additional Past Surgical History / Comment(s): LAPAROSCOPY, BLADDER SUSPENSION, INTERIOR WALL REPAIR. Past Anesthesia/Blood Transfusion Reactions: Previous Problems w/ Anesthesia Additional Past Anesthesia/Blood Transfusion Reaction / Comment(s): BP BOTTOMED OUT AFTER VERSED GIVEN Smoking Status: Current every day smoker - Past Family History Sister(s) Family Medical History: Cancer Additional Family Medical History / Comment(s): LUNG CANCER Mother Family Medical History: Cancer Additional Family Medical History / Comment(s): LUNG CA Father Family Medical History: Cancer, Myocardial Infarction ([place]) Additional Family Medical History / Comment(s): AT AGE 52 FROM MASSIVE [place] Medications and Allergies Home Medications Medication Instructions Recorded Confirmed Type HYDROcodone/APAP 5-325MG [[place] 1 tab PO DAILY PRN 01/20/18 03/28/18 History 5-325] Topiramate [Topamax] 200 mg PO DAILY 01/20/18 03/28/18 History Allergies Allergy/AdvReac Type Severity Reaction Status Date / Time codeine Allergy Itching Verified 03/28/18 08:20 Sulfa (Sulfonamide Allergy Anaphylaxis Verified 03/28/18 08:20 Antibiotics) adhesive tape AdvReac Unknown TEARS SKIN Verified 03/28/18 08:20 Physical Exam Vitals: Vital Signs Temp Pulse Pulse Resp BP BP BP 03/28/18 07:05 97.9 F 64 18 98/61 03/28/18 04:55 16 03/28/18 04:23 97.8 F 60 16 104/77 03/28/18 04:15 98.1 F 03/28/18 04:05 18 03/28/18 04:00 78 108/79 03/28/18 03:30 69 98/73 03/28/18 03:00 94 112/69 03/28/18 02:30 75 93/67 03/28/18 02:00 78 104/63 03/28/18 01:30 93 102/76 03/28/18 01:04 92 18 102/76 03/28/18 00:15 22 03/28/18 00:11 98.2 F 104 H 18 114/71 Pulse Ox 03/28/18 07:05 98 03/28/18 04:55 03/28/18 04:23 100 03/28/18 04:15 03/28/18 04:05 03/28/18 04:00 03/28/18 03:30 99 03/28/18 03:00 98 03/28/18 02:30 99 03/28/18 02:00 98 03/28/18 01:30 99 03/28/18 01:04 99 03/28/18 00:15 03/28/18 00:11 100 Intake and Output 03/27/18 03/28/18 03/28/18 22:59 06:59 14:59 Other: Voiding Method Toilet # Voids 1 Weight 67.132 kg Results 03/28/18 00:28 03/28/18 00:28 Cardiac Enzymes 03/28/18 03/28/18 03/28/18 Range/Units 00:28 00:28 03:45 AST 18 (14-36) U/L CK-MB (CK-2) 0.4 0.3 (0.0-2.4) ng/mL Troponin I <0.012 <0.012 (0.000-0.034) ng/mL Coagulation 03/28/18 Range/Units 00:28 PT 9.8 (9.0-12.0) sec APTT 21.3 L (22.0-30.0) sec CBC 03/28/18 Range/Units 00:28 WBC 10.4 (3.8-10.6) k/uL RBC 4.50 (3.80-5.40) m/uL Hgb 13.5 (11.4-16.0) gm/dL Hct 42.8 (34.0-46.0) % Plt Count 404 (150-450) k/uL Comprehensive Metabolic Panel 03/28/18 Range/Units 00:28 Sodium 138 (137-145) mmol/L Potassium 3.8 (3.5-5.1) mmol/L Chloride 108 H (98-107) mmol/L Carbon Dioxide 22 (22-30) mmol/L BUN 7 (7-17) mg/dL Creatinine 0.81 (0.52-1.04) mg/dL Glucose 103 H (74-99) mg/dL Calcium 9.2 (8.4-10.2) mg/dL AST 18 (14-36) U/L ALT 24 (9-52) U/L Alkaline Phosphatase 58 (38-126) U/L Total Protein 6.5 (6.3-8.2) g/dL Albumin 3.9 (3.5-5.0) g/dL Current Medications Generic Name Dose Route Start Last Admin Trade Name Freq PRN Reason Stop Dose Admin Acetaminophen 650 mg 03/28/18 04:29 Tylenol Tab PO Q6HR PRN Fever and/ or Pain Aspirin 325 mg 03/29/18 09:00 Aspirin PO DAILY JOSEY Ibuprofen 600 mg 03/28/18 04:30 03/28/18 04:41 Motrin PO 600 mg QID JOSEY Administration Nitroglycerin 0.4 mg 03/28/18 03:45 Nitrostat SUBLINGUAL Q5M PRN Chest Pain Intake and Output 03/27/18 03/28/18 03/28/18 22:59 06:59 14:59 Other: Voiding Method Toilet # Voids 1 Weight 67.132 kg 03/28/18 00:28 03/28/18 00:28
[2018-03-28 10:54] LABS: Creatine Kinase 68 U/L (30-135)
[2018-03-28 11:04] LABS: Creatine Kinase MB <0.2 ng/mL (0.0-2.4); Troponin I <0.012 ng/mL (0.000-0.034)
--- NOTE | 2018-03-28 12:01 | ECHOS ---
STRESS ECHOCARDIOGRAM DATE OF SERVICE: 03/28/2018 INDICATION OF THE STUDY: Chest discomfort MEDICATIONS: BASELINE HEART RATE: 66 BASELINE BLOOD PRESSURE: 104/54 MAXIMUM HEART RATE: 165 MAXIMUM BLOOD PRESSURE: 141/78 85% MPHR: 155 100% MPHR: 182 METS: 10.5 MAXIMUM STAGE REACHED: III TOTAL EXERCISE TIME: 9 minutes and 1 second CLINICAL INFORMATION: STRESS DATA: Pretesting physical examination showed heart rate of 66, pressure is 104/54 mmHg. Baseline EKG showed sinus mechanism. The patient exercised on the treadmill according to [place] protocol for a total of 9 minutes and 1 second and achieved 10.5 METs. Max heart rate was 165, which is about 89% of maximum predicted heart rate. Maximum blood pressure was 141/78 mmHg. Clinically, the patient did develop chest discomfort and chest pressure. The EKG did not show any significant ST or T-wave abnormalities concerning for ischemia. ECHOCARDIOGRAM IMAGES: On echocardiogram images from parasternal long axis view, parasternal short axis view, apical 4 chamber and apical 2 chamber view were obtained at the baseline images, at the peak of the heart rate, as well as on recovery. The echocardiogram images did not show any evidence of wall motion abnormalities concerning for ischemia. CONCLUSION: 1. Good exercise tolerance. 2. Chest discomfort in response to exercise. 3. Normal EKG in response to exercise. 4. Normal echocardiographic in response to exercise. MMODL / IJN: [id number] /
[2018-03-28] MEDS ORDERED: MORPHINE SULFATE 2 MG/ML SYRINGE IVP ONE (12:45)
--- NOTE | 2018-03-28 14:59 | P.HPIM ---
History of Present Illness H&P Date: 03/28/18 This is a 37-year-old female patient of Dr. Potter with past medical history of history of gastroesophageal reflux disease, left renal atrophy, chronic anemia, headaches under the care of Dr. Lieberman, tobacco use patient states that she was sitting and talking on the phone about 11 PM yesterday and developed pressure in her chest that took her breath away. She had radiation to the left shoulder and numbness in her left hand. She states she has had this same pain before it comes and goes. She denies any burping with it. She states she stopped drinking caffeine a month ago without any change. She came into [facility] emergency center and was given nitroglycerin and took the pressure we will also give her headache. She states the Motrin is not helping at all. She was seen by cardiology and stress echo was done which was normal and patient will be discharged home today. She is requesting something for pain control and one dose of IV morphine will be given prior to discharge. Patient understands that she is not to drive. Discussed with the patient that the most likely cause for her pain is related to esophageal spasm and recommends follow-up with a commercial lender as an outpatient. Discharge Medication List HYDROcodone/APAP 5-325MG [[place] 5-325] 1 tab PO DAILY PRN 01/20/18 [History] Topiramate [Topamax] 200 mg PO DAILY 01/20/18 [History] Review of Systems All systems: negative Constitutional: Denies chills, Denies fatigue, Denies fever, Denies lethargy, Denies malaise, Denies poor appetite, Denies weakness, Denies weight loss Eyes: denies blurred vision, denies pain Ears, nose, mouth and throat: Denies dysphagia, Denies headache, Denies hoarseness, Denies sore throat, Denies vertigo Cardiovascular: Reports chest pain, Denies dyspnea on exertion, Denies edema, Denies lightheadedness, Denies paroxysmal nocturnal dyspnea, Denies shortness of breath, Denies syncope Respiratory: Denies congestion, Denies cough, Denies cough with sputum, Denies dyspnea, Denies excessive sputum, Denies hemoptysis, Denies home oxygen, Denies wheezing Gastrointestinal: Denies abdominal pain, Denies belching, Denies bloating, Denies constipation, Denies diarrhea, Denies loss of appetite, Denies melena, Denies nausea, Denies vomiting Genitourinary: Denies dysuria, Denies hematuria Musculoskeletal: Denies frequent falls, Denies gait dysfunction, Denies myalgias Integumentary: Denies pruritus, Denies rash, Denies wounds Neurological: Denies change in mentation, Denies confusion, Denies gait dysfunction, Denies numbness, Denies weakness Psychiatric: Denies anxiety, Denies depression Endocrine: Denies fatigue, Denies weight change Past Medical History Past Medical History: Chest Pain / Angina, GERD/Reflux, Renal Disease Additional Past Medical History / Comment(s): LEFT RENAL ATROPHY., ANEMIA, PVC'S , DDD., prolonged periods History of Any Multi-Drug Resistant Organisms: None Reported Past Surgical History: Bladder Surgery, Cholecystectomy, Tonsillectomy, Tubal Ligation Additional Past Surgical History / Comment(s): LAPAROSCOPY, BLADDER SUSPENSION, INTERIOR WALL REPAIR. Past Anesthesia/Blood Transfusion Reactions: Previous Problems w/ Anesthesia Additional Past Anesthesia/Blood Transfusion Reaction / Comment(s): BP BOTTOMED OUT AFTER VERSED GIVEN Smoking Status: Current every day smoker Additional Past Alcohol Use History / Comment(s): Patient is a smoker of 2-10 cigarettes per day since she was 15 years of age. She denies any marijuana or street drug use. She brings alcohol occasionally. 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 - Past Family History Sister(s) Family Medical History: Cancer Additional Family Medical History / Comment(s): Patient has 2 sisters, one from brain cancer and one from lung cancer. Mother Family Medical History: Cancer Additional Family Medical History / Comment(s): Mother of lung cancer at age 71. Father Family Medical History: Cancer, Myocardial Infarction ([place]) Additional Family Medical History / Comment(s): AT AGE 52 FROM MASSIVE [place] Brother(s) Additional Family Medical History / Comment(s): Patient has 1 brother that is alive with history of hypertension and has history of myocardial infarction. Patient has 6 children, 3 boys and 3 girls with no major medical problems. Medications and Allergies Home Medications Medication Instructions Recorded Confirmed Type HYDROcodone/APAP 5-325MG [[place] 1 tab PO DAILY PRN 01/20/18 03/28/18 History 5-325] Topiramate [Topamax] 200 mg PO DAILY 01/20/18 03/28/18 History Allergies Allergy/AdvReac Type Severity Reaction Status Date / Time codeine Allergy Itching Verified 03/28/18 08:20 Sulfa (Sulfonamide Allergy Anaphylaxis Verified 03/28/18 08:20 Antibiotics) adhesive tape AdvReac Unknown TEARS SKIN Verified 03/28/18 08:20 Physical Exam Vitals: Vital Signs Temp Pulse Pulse Resp BP BP BP 03/28/18 07:05 97.9 F 64 18 98/61 03/28/18 04:55 16 03/28/18 04:23 97.8 F 60 16 104/77 03/28/18 04:15 98.1 F 03/28/18 04:05 18 03/28/18 04:00 78 108/79 03/28/18 03:30 69 98/73 03/28/18 03:00 94 112/69 03/28/18 02:30 75 93/67 03/28/18 02:00 78 104/63 03/28/18 01:30 93 102/76 03/28/18 01:04 92 18 102/76 03/28/18 00:15 22 03/28/18 00:11 98.2 F 104 H 18 114/71 Pulse Ox 03/28/18 07:05 98 03/28/18 04:55 03/28/18 04:23 100 03/28/18 04:15 03/28/18 04:05 03/28/18 04:00 03/28/18 03:30 99 03/28/18 03:00 98 03/28/18 02:30 99 03/28/18 02:00 98 03/28/18 01:30 99 03/28/18 01:04 99 03/28/18 00:15 03/28/18 00:11 100 Intake and Output 03/27/18 03/28/18 03/28/18 22:59 06:59 14:59 Other: Voiding Method Toilet Toilet # Voids 1 Weight 67.132 kg Gen: This is a 37-year-old female sitting in bed appears to be comfortable. HEENT: Head is atraumatic, normocephalic. Pupils equal, round. Sclerae is anicteric. NECK: Supple. No JVD. No lymphadenopathy. No thyromegaly. LUNGS: Clear to auscultation. No wheezes or rhonchi. No intercostal retractions. HEART: Regular rate and rhythm. No murmur. ABDOMEN: Soft. Bowel sounds are present. No masses. No tenderness. EXTREMITIES: No pedal edema. No calf tenderness. NEUROLOGICAL: Patient is awake, alert and oriented x3. Cranial nerves 2 through 12 are grossly intact. Results CBC & Chem 7: 03/28/18 00:28 03/28/18 00:28 Labs: Abnormal Lab Results - Last 24 Hours (Table) 03/28/18 03/28/18 03/28/18 Range/Units 00:28 00:28 00:28 APTT 21.3 L (22.0-30.0) sec D-Dimer 0.65 H (<0.60) mg/L FEU Chloride 108 H (98-107) mmol/L Glucose 103 H (74-99) mg/dL Thrombosis Risk Factor Assmnt - Choose All That Apply Any of the Below Risk Factors Present?: Yes Each Factor Represents 1 point: Hx of IBD, Obesity (BMI >25) Other Risk Factors: No Other congenital or acquired thrombophilia - If yes, enter type in comment: No Thrombosis Risk Factor Assessment Total Risk Factor Score: 2 Thrombosis Risk Factor Assessment Level: Low Risk Assessment and Plan Plan: 1. Chest pain secondary to esophageal spasm. Recommended follow-up with commercial lender. 2. Headaches, stable. 3. History of anemia. Hemoglobin 13.5. 4. Gastroesophageal reflux disease. Patient placed on the observation unit. Discharge plan: home Impression and plan of care have been directed as dictated by the signing physician. Yolette Laurent nurse practitioner acting as scribe for signing physician.
[2018-03-29] MEDS ORDERED: ASPIRIN 325 MG TAB PO SCH (09:00)
== END 2018-03-28 15:32 | disposition home or self-care (01) ==
LOC: EC 00:05 → 1SOBS 03:45
PROVIDERS: ADMIT Internal Medicine Geriatric Medicine; ATTEND Internal Medicine Geriatric Medicine
DX: K22.4 Dyskinesia of esophagus (principal); R51 Headache; D64.9 Anemia, unspecified; K21.9 Gastro-esophageal reflux disease without esophagitis; R00.2 Palpitations; R00.0 Tachycardia, unspecified; R06.02 Shortness of breath; R11.0 Nausea; F17.210 Nicotine dependence, cigarettes, uncomplicated; Z79.899 Other long term (current) drug therapy; Z88.5 Allergy status to narcotic agent; Z88.2 Allergy status to sulfonamides; Z91.048 Other nonmedicinal substance allergy status; Z90.49 Acquired absence of other specified parts of digestive tract; Z80.1 Family history of malignant neoplasm of trachea, bronchus and lung; Z82.49 Family history of ischemic heart disease and other diseases of the circulatory system; Z80.8 Family history of malignant neoplasm of other organs or systems; E66.9 Obesity, unspecified; Z68.28 Body mass index [BMI] 28.0-28.9, adult; K58.9 Irritable bowel syndrome, unspecified
CPT/HCPCS: 99285; 36415; 93005; 93351; 85379; 80053; 82550; 82553; 83690; 83735; 84484; 85025; 85610; 85730; 71046; 71275; G0378; Q9967

== ENCOUNTER → 2018-06-26 | Outpatient (CLI) | payer OTHER ==
[2018-06-26 16:41] LABS: Centromere Antibody Interp NEGATIVE (NEGATIVE); Cyclic Citrullinated Pep IgG NEGATIVE (NEGATIVE); DNA Double-Stranded NEGATIVE (NEGATIVE); RNP <0.2 AI; Scleroderma SC-70 Ab <0.2 AI
[2018-06-26 17:10] LABS: Iron Saturation 11.19 (12.00-45.00)
[2018-06-26 17:19] LABS: Folate, Serum 8.4 ng/mL
[2018-06-27 13:22] LABS: Histone Antibody 1.6 UNITS (<1.0)
== END | disposition home or self-care (01) ==
LOC: LABWHC1 09:18
PROVIDERS: ATTEND Psychiatry & Neurology Pain Medicine
DX: M25.50 Pain in unspecified joint (principal); R53.83 Other fatigue
CPT/HCPCS: 36415; 82607; 82728; 82746; 83516; 83540; 83550; 84207; 84425; 84439; 84443; 84466; 84481; 84591; 86038; 86200; 86225; 86235

== ENCOUNTER → 2018-07-17 | Outpatient (CLI) | payer OTHER ==
[2018-07-19 14:40] LABS: IgG - CSF 1.3 mg/dL (0.0 - 3.4); IgG/Albumin Index (CSF) 0.51 (0.00 - 0.77); Immunoglobulin G 707 mg/dL (700 - 1600)
== END ==
LOC: LABWHC1 12:15
PROVIDERS: ATTEND Psychiatry & Neurology Pain Medicine
DX: R90.82 White matter disease, unspecified (principal)
CPT/HCPCS: 36415; 82040; 82042; 82784; 83916

== ENCOUNTER 2018-12-29 18:53 | Emergency (ER) | payer OTHER ==
[2018-12-29 18:58] VITALS: RESP 18
[2018-12-29] MEDS ORDERED: methylPREDNISolone SOD SUCCI 125 MG/2 ML VIAL IV STA (19:30)
[2018-12-29] MEDS ORDERED: DIAZEPAM 5 MG/ML 2 ML INJ IVP STA ×2 (19:32)
--- NOTE | 2018-12-29 20:05 | ED ---
Back Pain HPI - General Chief Complaint: Back Pain/Injury Stated Complaint: bACK/LEGS PAIN Time Seen by Provider: 12/29/18 19:00 Source: patient Limitations: no limitations - History of Present Illness Initial Comments: 38-year-old female presenting for low back pain spasms of the legs bilaterally that have been ongoing for the past year. Patient states that she has been told she has MS and possibly lupus. Patient states that she has struggled chronic low back pain and leg spasms for the past year. Patient states they have been increasing for the past few months and she has an upcoming appointment as scheduled by her primary care provider with neurology as well as rheumatology. Patient states she has been seeing neurology consistently however her new appointment with rheumatology with [facility] is scheduled for Tuesday 01/02. Patient states her neurologist took her off her norco and she can no longer tolerate the pain. She denies any new injuries or trauma to the back denies fevers denies IV drug use. Patient denies any M inability to ambulate. Weakness of the lower extremities. She denies loss sensation urinary retention or loss of bowel bladder control. Patient denies history of cancer. Patient denies any headache neck stiffness. Patient states she presents emergency department for some dramatic control. Remaining review of systems negative she appears well upon arrival she is ambulatory - Related Data Home Medications Medication Instructions Recorded Confirmed Topiramate [Topamax] 100 mg PO BID 12/29/18 12/29/18 Previous Rx's Medication Instructions Recorded HYDROcodone/APAP 7.5-325MG [[place] 1 tab PO Q6HR PRN 3 Days #12 tab 12/29/18 7.5-325] Orphenadrine [Norflex] 100 mg PO Q12H 7 Days #14 tablet.er 12/29/18 predniSONE 20 mg PO BID 5 Days #10 tab 12/29/18 Allergies Allergy/AdvReac Type Severity Reaction Status Date / Time codeine Allergy Itching Verified 12/29/18 19:55 Sulfa (Sulfonamide Allergy Anaphylaxis Verified 12/29/18 19:55 Antibiotics) adhesive tape AdvReac Unknown TEARS SKIN Verified 12/29/18 19:55 Review of Systems ROS Statement: Those systems with pertinent positive or pertinent negative responses have been documented in the HPI. ROS Other: All systems not noted in ROS Statement are negative. Past Medical History Past Medical History: Chest Pain / Angina, GERD/Reflux, Renal Disease Additional Past Medical History / Comment(s): LEFT RENAL ATROPHY., ANEMIA, PVC'S, DDD., prolonged periods History of Any Multi-Drug Resistant Organisms: None Reported Past Surgical History: Bladder Surgery, Cholecystectomy, Tonsillectomy, Tubal Ligation Additional Past Surgical History / Comment(s): LAPAROSCOPY, BLADDER SUSPENSION, INTERIOR WALL REPAIR. Past Anesthesia/Blood Transfusion Reactions: Previous Problems w/ Anesthesia Additional Past Anesthesia/Blood Transfusion Reaction / Comment(s): BP BOTTOMED OUT AFTER VERSED GIVEN Past Psychological History: No Psychological Hx Reported Smoking Status: Current every day smoker Past Alcohol Use History: Occasional Past Drug Use History: None Reported - Past Family History Sister(s) Family Medical History: Cancer Additional Family Medical History / Comment(s): Patient has 2 sisters, one from brain cancer and one from lung cancer. Mother Family Medical History: Cancer Additional Family Medical History / Comment(s): Mother of lung cancer at age 71. Father Family Medical History: Cancer, Myocardial Infarction ([place]) Additional Family Medical History / Comment(s): AT AGE 52 FROM MASSIVE [place] Brother(s) Additional Family Medical History / Comment(s): Patient has 1 brother that is alive with history of hypertension and has history of myocardial infarction. Patient has 6 children, 3 boys and 3 girls with no major medical problems. General Exam - General Exam Comments Initial Comments: General: The patient is awake and alert, in no distress, and does not appear ac utely ill. Eye: +3 mm pupils are equal, round and reactive to light, extra-ocular movements are intact. No nystagmus. No APD. There is normal conjunctiva bilaterally. No signs of icterus. Ears, nose, mouth and throat: There are moist mucous membranes and no oral lesions. Neck: The neck is supple, there is no tenderness or JVD. Cardiovascular: There is a regular rate and rhythm. No murmur, rub or gallop is appreciated. Respiratory: Lungs are clear to auscultation, respirations are non-labored, breath sounds are equal. No wheezes, stridor, rales, or rhonchi. Gastrointestinal: Soft, non-distended, non-tender abdomen without masses or organomegaly noted. There is no rebound or guarding present. Musculoskeletal: Normal inspection of legs. No LE edema. No spasm noted, or fasciculations. Normal ROM, no tenderness. Strength 5/5 of the LE b/l, ambulatory without difficulty. Sensation intact of the LE including saddle region. Radial and DP pulses equal bilaterally 2+. No midlline tenderness of the cervical thoracic or l umbar spine. NO masses noted. No lesions. No nuchal rigidity. Neurological: A&O x 3. CN II-XII intact, There are no obvious motor or sensory deficits. Coordination appears grossly intact. Speech is normal. Skin: Skin is warm and dry and no rashes or lesions are noted. Psychiatric: Cooperative, appropriate mood & affect, normal judgment. Limitations: no limitations Course Vital Signs 12/29/18 12/29/18 12/29/18 18:54 21:02 22:19 Temperature 97.9 F 98 F Pulse Rate 79 75 73 Respiratory 18 18 18 Rate Blood Pressure 117/78 93/53 108/74 O2 Sat by Pulse 99 99 99 Oximetry Medical Decision Making - Medical Decision Making Well appearing 38-year-old female presenting for leg spasms and back pain. Possible history of MS and lupus. Patient states she is still undergoing testing. Patient pain control emergency department the patient right IV ster oids. Patient's pain has been chronic and ongoing for months. No significant acute changes. Patient ambulatory. Patient Neurovascularly intact. No focal neurolgoical deficits. NO APD. NO complaints of MTATHEW or neck pain. No weakness on exam. No signs of cauda equina. No electrolyte derangements on laboratory studies. At this time feel patient is stable for discharge with outpatient follow-up as scheduled. Patient is agreeable prefers this plan stating she must go home. Patient provided 3 day script of norco for pain and Norflex for muscle spasms. Patient is also provided prescription for steroids. I discussed the proper use of ibuprofen and obtained opioid consent form prior to her sclerae medication. patient was discharged appearing well. walking out of ER without difficulty. Discussed case with Dr. Schwartz prior to d/c - Lab Data Result diagrams: 12/29/18 19:53 12/29/18 19:53 Lab Results 12/29/18 12/29/18 Range/Units 19:53 19:53 WBC 7.4 (3.8-10.6) k/uL RBC 4.40 (3.80-5.40) m/uL Hgb 13.4 (11.4-16.0) gm/dL Hct 40.7 (34.0-46.0) % MCV 92.4 (80.0-100.0) fL MCH 30.4 (25.0-35.0) pg MCHC 32.9 (31.0-37.0) g/dL RDW 14.6 (11.5-15.5) % Plt Count 308 (150-450) k/uL Neutrophils % 57 % Lymphocytes % 30 % Monocytes % 8 % Eosinophils % 3 % Basophils % 1 % Neutrophils # 4.2 (1.3-7.7) k/uL Lymphocytes # 2.2 (1.0-4.8) k/uL Monocytes # 0.6 (0-1.0) k/uL Eosinophils # 0.2 (0-0.7) k/uL Basophils # 0.0 (0-0.2) k/uL Sodium 136 L (137-145) mmol/L Potassium 4.3 (3.5-5.1) mmol/L Chloride 104 (98-107) mmol/L Carbon Dioxide 27 (22-30) mmol/L Anion Gap 5 mmol/L BUN 6 L (7-17) mg/dL Creatinine 0.74 (0.52-1.04) mg/dL Est GFR (CKD-EPI)AfAm >90 (>60 ml/min/1.73 sqM) Est GFR (CKD-EPI)NonAf >90 (>60 ml/min/1.73 sqM) Glucose 75 (74-99) mg/dL Calcium 9.1 (8.4-10.2) mg/dL Total Bilirubin 0.4 (0.2-1.3) mg/dL AST 21 (14-36) U/L ALT 20 (9-52) U/L Alkaline Phosphatase 66 (38-126) U/L Total Protein 6.3 (6.3-8.2) g/dL Albumin 3.8 (3.5-5.0) g/dL Disposition Clinical Impression: Chronic back pain, Muscle spasm of both lower legs Disposition: HOME SELF-CARE Instructions (If sedation given, give patient instructions): Muscle Spasm (ED) Additional Instructions: Please use medication as discussed. Please follow-up with family doctor in the next 2 days, neurologist and continuity person as scheduled. Please return to emergency room if the symptoms increase or worsen or for any other concerns. Prescriptions: HYDROcodone/APAP 7.5-325MG [[place] 7.5-325] 1 tab PO Q6HR PRN 3 Days #12 tab PRN Reason: Severe Pain Orphenadrine [Norflex] 100 mg PO Q12H 7 Days #14 tablet.er predniSONE 20 mg PO BID 5 Days #10 tab Is patient prescribed a controlled substance at d/c from ED?: Yes When asked, does pt state using other controlled substances?: Yes If prescribed controlled substance>3 days was MAPS reviewed?: Prescribed <3 Days If opioid is for acute pain is fill amount 7 days or less?: Yes If Rx opioid, was Start Talking consent form obtained?: Yes Referrals: Michael Potter MD [Primary Care Provider] - 1-2 days Time of Disposition: 22:19
[2018-12-29 20:08] LABS: Basophils % (A) 1 %; Eosinophils # (A) 0.2 k/uL (0-0.7); Eosinophils % (A) 3 %; HCT 40.7 % (34.0-46.0); HGB 13.4 gm/dL (11.4-16.0); Lymphocytes # (A) 2.2 k/uL (1.0-4.8); Lymphocytes % (A) 30 %; MCH 30.4 pg (25.0-35.0); MCHC 32.9 g/dL (31.0-37.0); MCV 92.4 fL (80.0-100.0); Mean Platelet Volume 7.2; Monocytes # (A) 0.6 k/uL (0-1.0); Monocytes % (A) 8 %; Neutrophils # (A) 4.2 k/uL (1.3-7.7); Neutrophils % (A) 57 %; Platelet Count 308 k/uL (150-450); RDW 14.6 % (11.5-15.5); WBC 7.4 k/uL (3.8-10.6)
[2018-12-29 20:15] LABS: ALT 20 U/L (9-52); AST 21 U/L (14-36); African American GFR (CKD) >90 (>60 ml/min/1.73 sqM); Albumin 3.8 g/dL (3.5-5.0); Alkaline Phosphatase 66 U/L (38-126); Anion Gap 5 mmol/L; Blood Urea Nitrogen 6 mg/dL (7-17); Calcium 9.1 mg/dL (8.4-10.2); Carbon Dioxide 27 mmol/L (22-30); Chloride 104 mmol/L (98-107); Glucose 75 mg/dL (74-99); Potassium 4.3 mmol/L (3.5-5.1); Sodium 136 mmol/L (137-145); Total Bilirubin 0.4 mg/dL (0.2-1.3); Total Protein 6.3 g/dL (6.3-8.2)
[2018-12-29] MEDS ORDERED: HYDROmorphone 0.5 MG/0.5 ML SYRINGE IVP STA (20:47)
[2018-12-29] MEDS ORDERED: ACET/COD 300 MG/30 MG STARTER PACK 6 TAB BTL PO STA (21:03)
[2018-12-29] MEDS ORDERED: SODIUM CHLORIDE 0.9% 500 ML 500 ML IV ONE (21:59)
[2018-12-29 22:21] VITALS: BP 108/74; PULSE 73; TEMP 98
== END 2018-12-29 22:28 | disposition home or self-care (01) ==
LOC: EC 18:53
DX: G89.29 Other chronic pain (principal); M54.5 Low back pain; M62.838 Other muscle spasm; F17.200 Nicotine dependence, unspecified, uncomplicated; Z79.899 Other long term (current) drug therapy; Z88.2 Allergy status to sulfonamides; Z88.5 Allergy status to narcotic agent; Z91.048 Other nonmedicinal substance allergy status
CPT/HCPCS: 36415; 80053; 85025; 99283; 96374; 96375 ×2; J2930; J3360; J1170

== ENCOUNTER 2019-05-01 05:25 | Emergency (ER) | payer OTHER ==
[2019-05-01 05:36] VITALS: RESP 18; TEMP 98.3
[2019-05-01] MEDS ORDERED: SODIUM CHLORIDE 0.9% 1,000 ML IV STA (05:47)
[2019-05-01] MEDS ORDERED: HYDROmorphone 0.5 MG/0.5 ML SYRINGE IVP STA (05:47)
[2019-05-01] MEDS ORDERED: ACETAMINOPHEN TAB 325 MG TAB PO STA (05:47)
[2019-05-01] MEDS ORDERED: diphenhydrAMINE 50 MG/ML 1 ML VIAL IVP STA (05:47)
[2019-05-01] MEDS ORDERED: METOCLOPRAMIDE 5 MG/ML 2 ML VIAL IVP STA (05:47)
--- NOTE | 2019-05-01 06:01 | ED ---
General Adult HPI - General Chief complaint: Headache Stated complaint: Adverse Med Reaction/MS Relapse Time Seen by Provider: 05/01/19 05:41 Source: patient, RN notes reviewed, old records reviewed Mode of arrival: ambulatory Limitations: no limitations - History of Present Illness Initial comments: 39-year-old female history of MS presenting for evaluation of headache. Patient does have chronic headaches, she states this headache began slowly throughout the day yesterday and has gradually worsened. She was seen by her neurologist this afternoon for steroid infusion. She received thousand milligrams steroid infusion for MS exacerbation. She was also started on a new injectable medication which she is uncertain of the name. She states that headache has become more severe, describes as global headache down into her neck. She was given Toradol for her headache at the neurologist office and this did not seem to improve her symptoms. No URI symptoms. No fever or chills. No nausea vomiting. No abdominal pain. No chest pain. - Related Data Home Medications Medication Instructions Recorded Confirmed Baclofen [Lioresal] 20 mg PO HS PRN 05/01/19 05/01/19 Glatiramer Acetate 40 mg SQ MOWEFR 05/01/19 05/01/19 Allergies Allergy/AdvReac Type Severity Reaction Status Date / Time codeine Allergy Itching Verified 05/01/19 07:31 Sulfa (Sulfonamide Allergy Anaphylaxis Verified 05/01/19 07:31 Antibiotics) adhesive tape AdvReac Unknown TEARS SKIN Verified 05/01/19 07:31 Review of Systems ROS Statement: Those systems with pertinent positive or pertinent negative responses have been documented in the HPI. ROS Other: All systems not noted in ROS Statement are negative. Past Medical History Past Medical History: Chest Pain / Angina, GERD/Reflux, Renal Disease Additional Past Medical History / Comment(s): LEFT RENAL ATROPHY., ANEMIA, PVC'S, DDD., prolonged periods, MS History of Any Multi-Drug Resistant Organisms: None Reported Past Surgical History: Bladder Surgery, Cholecystectomy, Tonsillectomy, Tubal Ligation Additional Past Surgical History / Comment(s): LAPAROSCOPY, BLADDER SUSPENSION, INTERIOR WALL REPAIR. Past Anesthesia/Blood Transfusion Reactions: Previous Problems w/ Anesthesia Additional Past Anesthesia/Blood Transfusion Reaction / Comment(s): BP BOTTOMED OUT AFTER VERSED GIVEN Past Psychological History: No Psychological Hx Reported Smoking Status: Current every day smoker Past Alcohol Use History: Occasional Past Drug Use History: None Reported - Past Family History Sister(s) Family Medical History: Cancer Additional Family Medical History / Comment(s): Patient has 2 sisters, one from brain cancer and one from lung cancer. Mother Family Medical History: Cancer Additional Family Medical History / Comment(s): Mother of lung cancer at age 71. Father Family Medical History: Cancer, Myocardial Infarction ([place]) Additional Family Medical History / Comment(s): AT AGE 52 FROM MASSIVE [place] Brother(s) Additional Family Medical History / Comment(s): Patient has 1 brother that is alive with history of hypertension and has history of myocardial infarction. Patient has 6 children, 3 boys and 3 girls with no major medical problems. General Exam Limitations: no limitations Head exam: Present: atraumatic, normocephalic Eye exam: Present: normal appearance, PERRL ENT exam: Present: normal exam Neck exam: Present: normal inspection. Absent: tenderness, meningismus Respiratory exam: Present: normal lung sounds bilaterally. Absent: respiratory distress, wheezes Cardiovascular Exam: Present: regular rate, normal rhythm GI/Abdominal exam: Present: soft. Absent: distended, tenderness, guarding Extremities exam: Present: normal inspection, normal capillary refill Neurological exam: Present: alert, oriented X3, CN II-XII intact, motor sensory deficit (NIH of 0, she has slightly decreased frozen meat cutter strength on the left.) Psychiatric exam: Present: normal affect, normal mood Skin exam: Present: warm, dry, intact. Absent: cyanosis, diaphoretic Course Vital Signs 05/01/19 05/01/19 05:32 07:18 Temperature 98.3 F Pulse Rate 98 61 Respiratory 18 18 Rate Blood Pressure 122/80 100/68 O2 Sat by Pulse 98 98 Oximetry - Reevaluation(s) Reevaluation #1: 05/01/19 0700 patient's care is signed out to Dr. Farley at shift change awaiting reevaluation. Medical Decision Making - Lab Data Result diagrams: 05/01/19 05:53 05/01/19 05:53 Lab Results 05/01/19 05/01/19 05/01/19 Range/Units 05:53 05:53 06:44 WBC 14.1 H (3.8-10.6) k/uL RBC 4.24 (3.80-5.40) m/uL Hgb 12.7 (11.4-16.0) gm/dL Hct 39.2 (34.0-46.0) % MCV 92.5 (80.0-100.0) fL MCH 30.0 (25.0-35.0) pg MCHC 32.4 (31.0-37.0) g/dL RDW 14.0 (11.5-15.5) % Plt Count 321 (150-450) k/uL Neutrophils % 90 % Lymphocytes % 7 % Monocytes % 1 % Eosinophils % 1 % Basophils % 0 % Neutrophils # 12.8 H (1.3-7.7) k/uL Lymphocytes # 1.0 (1.0-4.8) k/uL Monocytes # 0.2 (0-1.0) k/uL Eosinophils # 0.1 (0-0.7) k/uL Basophils # 0.0 (0-0.2) k/uL Sodium 132 L (137-145) mmol/L Potassium 4.2 (3.5-5.1) mmol/L Chloride 103 (98-107) mmol/L Carbon Dioxide 20 L (22-30) mmol/L Anion Gap 9 mmol/L BUN 6 L (7-17) mg/dL Creatinine 0.73 (0.52-1.04) mg/dL Est GFR (CKD-EPI)AfAm >90 (>60 ml/min/1.73 sqM) Est GFR (CKD-EPI)NonAf >90 (>60 ml/min/1.73 sqM) Glucose 227 H (74-99) mg/dL Calcium 9.5 (8.4-10.2) mg/dL Total Bilirubin 0.3 (0.2-1.3) mg/dL AST 21 (14-36) U/L ALT 22 (4-34) U/L Alkaline Phosphatase 78 (38-126) U/L Total Protein 6.6 (6.3-8.2) g/dL Albumin 3.9 (3.5-5.0) g/dL Urine Color Colorless Urine Appearance Clear (Clear) Urine pH 6.0 (5.0-8.0) Ur Specific [place] 1.001 (1.001-1.035) Urine Protein Negative (Negative) Urine Glucose (UA) 2+ H (Negative) Urine Ketones Negative (Negative) Urine Blood Negative (Negative) Urine Nitrite Negative (Negative) Urine Bilirubin Negative (Negative) Urine Urobilinogen <2.0 (<2.0) mg/dL Ur Leukocyte Esterase Negative (Negative) Disposition Clinical Impression: Headache Disposition: HOME SELF-CARE Instructions (If sedation given, give patient instructions): Acute Headache (DC) Is patient prescribed a controlled substance at d/c from ED?: No Referrals: Michael Potter MD [Primary Care Provider] - 1-2 days Eli Damon MD [Medical Doctor] - 1-2 days
[2019-05-01 06:04] LABS: Basophils % (A) 0 %; Eosinophils # (A) 0.1 k/uL (0-0.7); Eosinophils % (A) 1 %; HCT 39.2 % (34.0-46.0); HGB 12.7 gm/dL (11.4-16.0); Lymphocytes % (A) 7 %; MCHC 32.4 g/dL (31.0-37.0); MCV 92.5 fL (80.0-100.0); Mean Platelet Volume 7.8; Monocytes # (A) 0.2 k/uL (0-1.0); Monocytes % (A) 1 %; Neutrophils # (A) 12.8 k/uL (1.3-7.7); Neutrophils % (A) 90 %; Platelet Count 321 k/uL (150-450); RBC 4.24 m/uL (3.80-5.40); WBC 14.1 k/uL (3.8-10.6)
[2019-05-01 06:13] LABS: AST 21 U/L (14-36); African American GFR (CKD) >90 (>60 ml/min/1.73 sqM); Albumin 3.9 g/dL (3.5-5.0); Alkaline Phosphatase 78 U/L (38-126); Anion Gap 9 mmol/L; Blood Urea Nitrogen 6 mg/dL (7-17); Calcium 9.5 mg/dL (8.4-10.2); Carbon Dioxide 20 mmol/L (22-30); Chloride 103 mmol/L (98-107); Glucose 227 mg/dL (74-99); Non-African American GFR(CKD) >90 (>60 ml/min/1.73 sqM); Potassium 4.2 mmol/L (3.5-5.1); Sodium 132 mmol/L (137-145); Total Bilirubin 0.3 mg/dL (0.2-1.3); Total Protein 6.6 g/dL (6.3-8.2)
[2019-05-01 06:26] LABS: ALT 22 U/L (4-34)
[2019-05-01 06:53] LABS: Appearance,Urine Clear (Clear); Bilirubin,Urine Negative (Negative); Blood,Urine Negative (Negative); Color,Urine Colorless; Glucose,Urine (UA) 2+ (Negative); Ketones,Urine Negative (Negative); Leukocyte Esterase,Urine Negative (Negative); Nitrite,Urine Negative (Negative); Protein,Urine Negative (Negative); Specific Gravity,Urine 1.001 (1.001-1.035); Urobilinogen,Urine <2.0 mg/dL (<2.0)
[2019-05-01] MEDS ORDERED: HYDROmorphone 1 MG/ML 1 ML SYRINGE IVP STA (06:54)
[2019-05-01] MEDS ORDERED: KETOROLAC 30 MG/ML 1 ML VIAL IVP STA (06:54)
--- NOTE | 2019-05-01 06:57 | CT ---
EXAMINATION TYPE: CT brain wo con DATE OF EXAM: 05/01/2019 COMPARISON: None at this institution. HISTORY: Headache with known brain lesions from multiple sclerosis. CT DLP: 1062.4 mGycm. Automated Exposure Control for Dose Reduction was Utilized. TECHNIQUE: CT scan of the head is performed without contrast. FINDINGS: There is no acute intracranial hemorrhage, mass effect, or midline shift identified. The ventricles and sulci are within normal limits in size. Steward-white matter differentiation fairly well preserved on CT imaging. MRI noted more sensitive. Slightly low-lying cerebellar tonsils without gre ater than 5 mm inferior to side to suggest Chiari malformation. The globes are intact and the visual ized sinuses are clear. IMPRESSION: No acute intracranial hemorrhage or midline shift.
[2019-05-01 07:19] VITALS: BP 100/68; PULSE 61
== END 2019-05-01 08:10 | disposition home or self-care (01) ==
LOC: EC 05:25
DX: R51 Headache (principal); F17.200 Nicotine dependence, unspecified, uncomplicated; Z88.5 Allergy status to narcotic agent; Z88.2 Allergy status to sulfonamides; Z91.048 Other nonmedicinal substance allergy status
CPT/HCPCS: 36415; 80053; 85025; 81003; 70450; 99285; 96374; 96375 ×3; 96376; 96361 ×2; J1200; J2765; J1885; J1170 ×2

== ENCOUNTER 2019-07-31 01:17 | Emergency (ER) | payer OTHER ==
[2019-07-31 01:28] VITALS: RESP 18
[2019-07-31 02:19] LABS: Basophils % (A) 0 %; Eosinophils # (A) 0.3 k/uL (0-0.7); Eosinophils % (A) 3 %; HCT 41.2 % (34.0-46.0); HGB 13.8 gm/dL (11.4-16.0); Lymphocytes # (A) 2.2 k/uL (1.0-4.8); Lymphocytes % (A) 17 %; MCHC 33.5 g/dL (31.0-37.0); MCV 89.5 fL (80.0-100.0); Mean Platelet Volume 7.6; Monocytes # (A) 0.7 k/uL (0-1.0); Monocytes % (A) 5 %; Neutrophils # (A) 9.4 k/uL (1.3-7.7); Neutrophils % (A) 73 %; Platelet Count 403 k/uL (150-450); RDW 14.5 % (11.5-15.5); WBC 12.8 k/uL (3.8-10.6)
[2019-07-31 02:24] LABS: African American GFR (CKD) >90 (>60 ml/min/1.73 sqM); Anion Gap 7 mmol/L; Blood Urea Nitrogen 6 mg/dL (7-17); Calcium 9.8 mg/dL (8.4-10.2); Carbon Dioxide 26 mmol/L (22-30); Chloride 100 mmol/L (98-107); Glucose 90 mg/dL (74-99); Non-African American GFR(CKD) >90 (>60 ml/min/1.73 sqM); Sodium 133 mmol/L (137-145)
--- NOTE | 2019-07-31 02:36 | XR ---
EXAMINATION TYPE: XR chest 1V portable DATE OF EXAM: 07/31/2019 COMPARISON: 03/28/2018 HISTORY: Cough. Chest pain TECHNIQUE: FINDINGS: Heart and mediastinum are normal. Lungs are clear. Diaphragm is normal. Bony thorax appears normal. IMPRESSION: Normal chest. No change.
--- NOTE | 2019-07-31 04:09 | ED ---
General Adult HPI - General Chief complaint: Upper Respiratory Infection Stated complaint: URI, SOB Time Seen by Provider: 07/31/19 01:32 Source: patient, RN notes reviewed, old records reviewed Mode of arrival: ambulatory Limitations: no limitations - History of Present Illness Initial comments: 39-year-old female patient past history of cholecystectomy, tubal ligation presents to ED with chief complaint of cough, fever, sore throat, mild chest pain with coughing and some mild shortness of breath since Tuesday night. Reports that children with similar symptoms. 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 Denies any other complaints. Systemic: Pt denies fatigue, fever/chills. Pt denies weakness, night sweats, w eight loss. Neuro: Pt denies headache, visual disturbances, syncope or pre-syncope. HEENT: Pt denies ocular discharge or irritation, otalgia, rhinorrhea, pharyngitis or notable lymphadenopathy. Cardiopulmonary: Pt denies heart palpitations, dyspnea on exertion. Abdominal/GI: Pt denies abdominal pain, n/v/d. : Pt denies dysuria, burning w/ urination, frequency/urgency. Denies new onset urinary or bowel incontinence. MSK: Pt denies myalgia, loss of strength or function in extremities. Neuro: Pt denies new onset weakness, paresthesias. - Related Data Home Medications Medication Instructions Recorded Confirmed Baclofen [Lioresal] 20 mg PO HS PRN 05/01/19 05/01/19 Glatiramer Acetate 40 mg SQ MOWEFR 05/01/19 05/01/19 Previous Rx's Medication Instructions Recorded Albuterol Inhaler [Ventolin Hfa 1 - 2 puff INHALATION Q4-6H PRN #1 07/31/19 Inhaler] inhaler Albuterol Nebulized [Ventolin 2.5 mg INHALATION Q4H PRN 10 Days 07/31/19 Nebulized] #60 nebu Allergies Allergy/AdvReac Type Severity Reaction Status Date / Time codeine Allergy Itching Verified 07/31/19 01:28 Sulfa (Sulfonamide Allergy Anaphylaxis Verified 07/31/19 01:28 Antibiotics) adhesive tape AdvReac Unknown TEARS SKIN Verified 07/31/19 01:28 Review of Systems ROS Statement: Those systems with pertinent positive or pertinent negative responses have been documented in the HPI. ROS Other: All systems not noted in ROS Statement are negative. Past Medical History Past Medical History: Chest Pain / Angina, GERD/Reflux, Renal Disease Additional Past Medical History / Comment(s): LEFT RENAL ATROPHY., ANEMIA, PVC'S, DDD., prolonged periods, MS History of Any Multi-Drug Resistant Organisms: None Reported Past Surgical History: Bladder Surgery, Cholecystectomy, Tonsillectomy, Tubal Ligation Additional Past Surgical History / Comment(s): LAPAROSCOPY, BLADDER SUSPENSION, INTERIOR WALL REPAIR. Past Anesthesia/Blood Transfusion Reactions: Previous Problems w/ Anesthesia Additional Past Anesthesia/Blood Transfusion Reaction / Comment(s): BP BOTTOMED OUT AFTER VERSED GIVEN Past Psychological History: No Psychological Hx Reported Smoking Status: Current every day smoker Past Alcohol Use History: Occasional, Rare Past Drug Use History: None Reported - Past Family History Sister(s) Family Medical History: Cancer Additional Family Medical History / Comment(s): Patient has 2 sisters, one from brain cancer and one from lung cancer. Mother Family Medical History: Cancer Additional Family Medical History / Comment(s): Mother of lung cancer at age 71. Father Family Medical History: Cancer, Myocardial Infarction ([place]) Additional Family Medical History / Comment(s): AT AGE 52 FROM MASSIVE [place] Brother(s) Additional Family Medical History / Comment(s): Patient has 1 brother that is a live with history of hypertension and has history of myocardial infarction. Patient has 6 children, 3 boys and 3 girls with no major medical problems. General Exam - General Exam Comments Initial Comments: Constitutional: NAD, AOX3, Pt has pleasant affect. HEENT: NC/AT, trachea midline, neck supple, no lymphadenopathy. External ears appear normal, without discharge. Mucous membranes moist. Eyes PERRLA, EOM intact. There is no scleral icterus. No pallor noted. Cardiopulmonary: RRR, no murmurs, rubs or gallops, no JVD noted. Lungs CTAB in anterior and posterior riojas. No peripheral edema. Abdominal exam: Abdomen soft and non-distended. Abdomen non-tender to palpation in all 4 quadrants. Neuro: CN II-XII grossly intact. No nuchal rigidity. No raccon eyes, no cobb sign, no hemotympanum. No cervical spinal tenderness. MSK: No posterior calf tenderness bilaterally, homans sign negative bilaterally. Posterior tibialis and radial pulse +2 bilaterally. Sensation intact in upper and lower extremities. Full active ROM in upper and lower extremities, 5/5 stregnth. Limitations: no limitations Course Vital Signs 07/31/19 07/31/19 01:22 02:49 Temperature 99.4 F Pulse Rate 126 H Respiratory 18 18 Rate Blood Pressure 121/77 O2 Sat by Pulse 96 Oximetry Medical Decision Making - Medical Decision Making 39-year-old female patient past history of cholecystectomy, tubal ligation presents to ED with chief complaint of cough, fever, sore throat, mild chest pain with coughing and some mild shortness of breath since Tuesday night. Reports that children with similar symptoms. 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 Denies any other complaints. Patient has risk factors for PE. Physical exam didn't display acute pathology. Laboratory investigations revealed leukocytosis of 12.8. HCG negative. Influenza negative. Group A strep negative. EKG nonischemic. Chest x-raywith acute process. Patient will be tested for coronavirus. Patient will be advised to home quarantine for the next 14 days as well as all of her family members. Will return to ER if condition worsens. Precautions are discussed. Case discussed in depth with Dr. Schwartz. - Lab Data Result diagrams: 07/31/19 02:05 07/31/19 02:05 Lab Results 07/31/19 07/31/19 07/31/19 Range/Units 02:05 02:05 02:30 WBC 12.8 H (3.8-10.6) k/uL RBC 4.60 (3.80-5.40) m/uL Hgb 13.8 (11.4-16.0) gm/dL Hct 41.2 (34.0-46.0) % MCV 89.5 (80.0-100.0) fL MCH 30.0 (25.0-35.0) pg MCHC 33.5 (31.0-37.0) g/dL RDW 14.5 (11.5-15.5) % Plt Count 403 (150-450) k/uL Neutrophils % 73 % Lymphocytes % 17 % Monocytes % 5 % Eosinophils % 3 % Basophils % 0 % Neutrophils # 9.4 H (1.3-7.7) k/uL Lymphocytes # 2.2 (1.0-4.8) k/uL Monocytes # 0.7 (0-1.0) k/uL Eosinophils # 0.3 (0-0.7) k/uL Basophils # 0.0 (0-0.2) k/uL Sodium 133 L (137-145) mmol/L Potassium 4.0 (3.5-5.1) mmol/L Chloride 100 (98-107) mmol/L Carbon Dioxide 26 (22-30) mmol/L Anion Gap 7 mmol/L BUN 6 L (7-17) mg/dL Creatinine 0.80 (0.52-1.04) mg/dL Est GFR (CKD-EPI)AfAm >90 (>60 ml/min/1.73 sqM) Est GFR (CKD-EPI)NonAf >90 (>60 ml/min/1.73 sqM) Glucose 90 (74-99) mg/dL Calcium 9.8 (8.4-10.2) mg/dL Urine Color Urine Appearance (Clear) Urine pH (5.0-8.0) Ur Specific [place] (1.001-1.035) Urine Protein (Negative) Urine Glucose (UA) (Negative) Urine Ketones (Negative) Urine Blood (Negative) Urine Nitrite (Negative) Urine Bilirubin (Negative) Urine Urobilinogen (<2.0) mg/dL Ur Leukocyte Esterase (Negative) Urine RBC (0-5) /hpf Urine WBC (0-5) /hpf Ur Squamous Epith Cells (0-4) /hpf Amorphous Sediment (None) /hpf Urine HCG, Qual (Not Detectd) Influenza Type A RNA Not Detected (Not Detectd) Influenza Type B (PCR) Not Detected (Not Detectd) Group A Strep Rapid (Negative) 07/31/19 07/31/19 07/31/19 Range/Units 02:30 02:30 02:30 WBC (3.8-10.6) k/uL RBC (3.80-5.40) m/uL Hgb (11.4-16.0) gm/dL Hct (34.0-46.0) % MCV (80.0-100.0) fL MCH (25.0-35.0) pg MCHC (31.0-37.0) g/dL RDW (11.5-15.5) % Plt Count (150-450) k/uL Neutrophils % % Lymphocytes % % Monocytes % % Eosinophils % % Basophils % % Neutrophils # (1.3-7.7) k/uL Lymphocytes # (1.0-4.8) k/uL Monocytes # (0-1.0) k/uL Eosinophils # (0-0.7) k/uL Basophils # (0-0.2) k/uL Sodium (137-145) mmol/L Potassium (3.5-5.1) mmol/L Chloride (98-107) mmol/L Carbon Dioxide (22-30) mmol/L Anion Gap mmol/L BUN (7-17) mg/dL Creatinine (0.52-1.04) mg/dL Est GFR (CKD-EPI)AfAm (>60 ml/min/1.73 sqM) Est GFR (CKD-EPI)NonAf (>60 ml/min/1.73 sqM) Glucose (74-99) mg/dL Calcium (8.4-10.2) mg/dL Urine Color Light Yellow Urine Appearance Cloudy H (Clear) Urine pH 7.0 (5.0-8.0) Ur Specific [place] 1.005 (1.001-1.035) Urine Protein Negative (Negative) Urine Glucose (UA) Negative (Negative) Urine Ketones Negative (Negative) Urine Blood Negative (Negative) Urine Nitrite Negative (Negative) Urine Bilirubin Negative (Negative) Urine Urobilinogen <2.0 (<2.0) mg/dL Ur Leukocyte Esterase Negative (Negative) Urine RBC 4 (0-5) /hpf Urine WBC 3 (0-5) /hpf Ur Squamous Epith Cells 13 H (0-4) /hpf Amorphous Sediment Rare H (None) /hpf Urine HCG, Qual Not Detected (Not Detectd) Influenza Type A RNA (Not Detectd) Influenza Type B (PCR) (Not Detectd) Group A Strep Rapid Negative (Negative) - EKG Data -: EKG Interpreted by Me EKG Comments: Ventricular rate 89,. Full 150, QRS 72, QT/QTC 324/394. Normal sinus rhythm, normal EKG, no concern for acute ischemia. Disposition Clinical Impression: Cough, Suspected [place] coronavirus infection Disposition: HOME SELF-CARE Condition: Stable Instructions (If sedation given, give patient instructions): Upper Respiratory Infection (ED) Additional Instructions: Self quarantine for the next 14 days. All family members should also self quarantine. Contact primary care provider via telephone tomorrow. Return to ER if condition worsens in any way. Return to ER if he develop any difficulty breathing or any other symptoms. Is patient prescribed a controlled substance at d/c from ED?: No Referrals: Michael Potter MD [Primary Care Provider] - 1-2 days
[2019-07-31 04:13] LABS: Amorphous Sediment,Urine Rare /hpf; Appearance,Urine Cloudy (Clear); Bilirubin,Urine Negative (Negative); Blood,Urine Negative (Negative); Color,Urine Light Yellow; Glucose,Urine (UA) Negative (Negative); Ketones,Urine Negative (Negative); Leukocyte Esterase,Urine Negative (Negative); Nitrite,Urine Negative (Negative); Protein,Urine Negative (Negative); RBC,Urine 4 /hpf (0-5); Specific Gravity,Urine 1.005 (1.001-1.035); Squamous Epithelial Cell,Urine 13 /hpf (0-4); Urobilinogen,Urine <2.0 mg/dL (<2.0); WBC,Urine 3 /hpf (0-5)
[2019-07-31 04:29] VITALS: BP 117/84; PULSE 106; TEMP 98.4
== END 2019-07-31 04:36 | disposition home or self-care (01) ==
LOC: EC 01:17
DX: R05 Cough (principal); Z20.828 Contact with and (suspected) exposure to other viral communicable diseases; D72.829 Elevated white blood cell count, unspecified; R50.9 Fever, unspecified; J02.9 Acute pharyngitis, unspecified; R07.9 Chest pain, unspecified; R06.02 Shortness of breath; G35 Multiple sclerosis; F17.200 Nicotine dependence, unspecified, uncomplicated; Z88.2 Allergy status to sulfonamides; Z88.5 Allergy status to narcotic agent; Z91.048 Other nonmedicinal substance allergy status; Z79.899 Other long term (current) drug therapy; Z90.89 Acquired absence of other organs; Z80.1 Family history of malignant neoplasm of trachea, bronchus and lung; Z82.49 Family history of ischemic heart disease and other diseases of the circulatory system
CPT/HCPCS: 36415; 93005; 80048; 85025; 81001; 81025; 87081; 87430; 87502; 71045; 99285; U0002

== ENCOUNTER 2020-06-27 15:36 | Observation (INO) | payer OTHER ==
--- NOTE | 2020-06-27 16:02 | ED ---
General Adult HPI - General Chief complaint: Chest Pain Stated complaint: Chest Pain Time Seen by Provider: 06/27/20 15:47 Source: patient Mode of arrival: ambulatory Limitations: no limitations - History of Present Illness Initial comments: Dictation was produced using [employer] dictation software. please excuse any grammatical, word or spelling errors. This patient was cared for during a federal and state declared state of emergency secondary to Covid 19 Chief Complaint: 40-year-old female with past medical history of multiple scler osis presents with chest pain and shortness of breath History of Present Illness: 40-year-old female past medical history of multiple sclerosis presents with 48 hours of chest pain and shortness of breath. She states that her symptoms began as shortness of breath. Patient denies any history of pulmonary embolus. Yesterday she began developing substernal chest pressure that rated to the left scapular region. Patient has any history of cardiac disease. She does have history of multiple sclerosis and is not compliant with her MS medications. Shortness of breath without any exacerbating or mitigating factors. No fever, chills or night sweats. No sore throat or cough. No rhinorrhea. No obvious exposure to anybody with viral symptoms. She does report family history of cardiac disease. Patient is crying because she states that she is tired. The ROS documented in this emergency department record has been reviewed and confirmed by me. Those systems with pertinent positive or negative responses have been documented in the HPI. All other systems are other negative and/or noncontributory. PHYSICAL EXAM: General Impression: Alert and oriented x3, not in acute distress HEENT: Normocephalic atraumatic, extra-ocular movements intact, pupils equal and reactive to light bilaterally, mucous membranes moist. Cardiovascular: Heart regular rate and rhythm Chest: Able to complete full sentences, no retractions, no tachypnea Abdomen: abdomen soft, non-tender, non-distended, no organomegaly Musculoskeletal: Pulses present and equal in all extremities, no peripheral edema Motor: no focal deficits noted Neurological: CN II-XII grossly intact, no focal motor or sensory deficits noted Skin: Intact with no visualized rashes Psych: Tearful ED course: 40-year-old female presents with atypical chest pain typical features. She does have associated shortness of breath. She does not have any exacerbating or mitigating factors. His well-appearing and physical examination is benign. She has no history of thromboembolic disease or venous thromboses. As upon arrival shows heart rate of 1 week, worse vital signs within acceptable limits. EKG is benign. Laboratory evaluation obtained. CBC, coag panel is unremarkable. D-dimer is negative. Metabolic panel is unremarkable. There is a slight hyponatremia with sodium 132. Currently I test is negative. Chest x-ray is not acute. Patient observed in the emergency department for 1 hour 30 minutes with no acute processes. Disposition options were discussed with patient. She is agreeable to be admitted for serial troponins. Patient be admitted. EKG interpretation: Ventricular rate 1, normal sinus rhythm, LA interval 146, QRS 68, QTC 420. No LA prolongation, no QTC prolongation, no ST or T-wave changes noted. EKG compared to 07/31/2019 showing no changes. Overall, this EKG is unremarkable - Related Data Home Medications Medication Instructions Recorded Confirmed Vitamin D (Unknown Strength) 1 tab PO DAILY 06/27/20 06/27/20 Allergies Allergy/AdvReac Type Severity Reaction Status Date / Time codeine Allergy Itching Verified 06/27/20 16:54 Sulfa (Sulfonamide Allergy Anaphylaxis Verified 06/27/20 16:54 Antibiotics) adhesive tape AdvReac Unknown TEARS SKIN Verified 06/27/20 16:54 Review of Systems ROS Statement: Those systems with pertinent positive or pertinent negative responses have been documented in the HPI. ROS Other: All systems not noted in ROS Statement are negative. Past Medical History Past Medical History: Chest Pain / Angina, GERD/Reflux, Renal Disease Additional Past Medical History / Comment(s): LEFT RENAL ATROPHY., ANEMIA, PVC'S, DDD., prolonged periods, MS History of Any Multi-Drug Resistant Organisms: None Reported Past Surgical History: Bladder Surgery, Cholecystectomy, Tonsillectomy, Tubal Ligation Additional Past Surgical History / Comment(s): LAPAROSCOPY, BLADDER SUSPENSION, INTERIOR WALL REPAIR. Past Anesthesia/Blood Transfusion Reactions: Previous Problems w/ Anesthesia Additional Past Anesthesia/Blood Transfusion Reaction / Comment(s): BP BOTTOMED OUT AFTER VERSED GIVEN Past Psychological History: No Psychological Hx Reported Smoking Status: Current every day smoker Past Alcohol Use History: Occasional, Rare Past Drug Use History: None Reported - Past Family History Sister(s) Family Medical History: Cancer Additional Family Medical History / Comment(s): Patient has 2 sisters, one from brain cancer and one from lung cancer. Mother Family Medical History: Cancer Additional Family Medical History / Comment(s): Mother of lung cancer at age 71. Father Family Medical History: Cancer, Myocardial Infarction ([place]) Additional Family Medical History / Comment(s): AT AGE 52 FROM MASSIVE [place] Brother(s) Additional Family Medical History / Comment(s): Patient has 1 brother that is alive with history of hypertension and has history of myocardial infarction. Patient has 6 children, 3 boys and 3 girls with no major medical problems. General Exam Limitations: no limitations Course Vital Signs 06/27/20 15:40 Temperature 98.5 F Pulse Rate 108 H Respiratory 20 Rate Blood Pressure 125/92 O2 Sat by Pulse 99 Oximetry Medical Decision Making - Lab Data Result diagrams: 06/27/20 16:11 06/27/20 16:11 Lab Results 06/27/20 06/27/20 06/27/20 Range/Units 16:11 16:11 16:11 WBC 8.3 (3.8-10.6) k/uL RBC 4.20 (3.80-5.40) m/uL Hgb 12.2 (11.4-16.0) gm/dL Hct 38.0 (34.0-46.0) % MCV 90.6 (80.0-100.0) fL MCH 29.1 (25.0-35.0) pg MCHC 32.2 (31.0-37.0) g/dL RDW 15.0 (11.5-15.5) % Plt Count 390 (150-450) k/uL MPV 7.1 Neutrophils % 65 % Lymphocytes % 24 % Monocytes % 5 % Eosinophils % 4 % Basophils % 1 % Neutrophils # 5.5 (1.3-7.7) k/uL Lymphocytes # 2.0 (1.0-4.8) k/uL Monocytes # 0.4 (0-1.0) k/uL Eosinophils # 0.4 (0-0.7) k/uL Basophils # 0.1 (0-0.2) k/uL PT 9.6 (9.0-12.0) sec INR 0.9 (<1.2) APTT 22.3 (22.0-30.0) sec D-Dimer 0.41 (<0.60) mg/L FEU Sodium 132 L (137-145) mmol/L Potassium 3.9 (3.5-5.1) mmol/L Chloride 99 (98-107) mmol/L Carbon Dioxide 24 (22-30) mmol/L Anion Gap 9 mmol/L BUN 3 L (7-17) mg/dL Creatinine 0.75 (0.52-1.04) mg/dL Est GFR (CKD-EPI)AfAm >90 (>60 ml/min/1.73 sqM) Est GFR (CKD-EPI)NonAf >90 (>60 ml/min/1.73 sqM) Glucose 127 H (74-99) mg/dL Calcium 9.2 (8.4-10.2) mg/dL Magnesium 1.8 (1.6-2.3) mg/dL Total Bilirubin 0.3 (0.2-1.3) mg/dL AST 27 (14-36) U/L ALT 22 (4-34) U/L Alkaline Phosphatase 88 (38-126) U/L Troponin I (0.000-0.034) ng/mL NT-Pro-B Natriuret Pep pg/mL Total Protein 6.5 (6.3-8.2) g/dL Albumin 3.8 (3.5-5.0) g/dL Coronavirus (PCR) (Not Detectd) 06/27/20 06/27/20 06/27/20 Range/Units 16:11 16:11 16:11 WBC (3.8-10.6) k/uL RBC (3.80-5.40) m/uL Hgb (11.4-16.0) gm/dL Hct (34.0-46.0) % MCV (80.0-100.0) fL MCH (25.0-35.0) pg MCHC (31.0-37.0) g/dL RDW (11.5-15.5) % Plt Count (150-450) k/uL MPV Neutrophils % % Lymphocytes % % Monocytes % % Eosinophils % % Basophils % % Neutrophils # (1.3-7.7) k/uL Lymphocytes # (1.0-4.8) k/uL Monocytes # (0-1.0) k/uL Eosinophils # (0-0.7) k/uL Basophils # (0-0.2) k/uL PT (9.0-12.0) sec INR (<1.2) APTT (22.0-30.0) sec D-Dimer (<0.60) mg/L FEU Sodium (137-145) mmol/L Potassium (3.5-5.1) mmol/L Chloride (98-107) mmol/L Carbon Dioxide (22-30) mmol/L Anion Gap mmol/L BUN (7-17) mg/dL Creatinine (0.52-1.04) mg/dL Est GFR (CKD-EPI)AfAm (>60 ml/min/1.73 sqM) Est GFR (CKD-EPI)NonAf (>60 ml/min/1.73 sqM) Glucose (74-99) mg/dL Calcium (8.4-10.2) mg/dL Magnesium (1.6-2.3) mg/dL Total Bilirubin (0.2-1.3) mg/dL AST (14-36) U/L ALT (4-34) U/L Alkaline Phosphatase (38-126) U/L Troponin I <0.012 (0.000-0.034) ng/mL NT-Pro-B Natriuret Pep 21 pg/mL Total Protein (6.3-8.2) g/dL Albumin (3.5-5.0) g/dL Coronavirus (PCR) Not Detected (Not Detectd) Disposition Clinical Impression: Chest pain Disposition: ADMITTED IP TO THIS [facility] Condition: Fair Referrals: Michael Potter MD [Primary Care Provider] - 1-2 days Decision Time: 17:21
[2020-06-27 16:26] LABS: Basophils # (A) 0.1 k/uL (0-0.2); Basophils % (A) 1 %; Eosinophils # (A) 0.4 k/uL (0-0.7); Eosinophils % (A) 4 %; HGB 12.2 gm/dL (11.4-16.0); Lymphocytes % (A) 24 %; MCH 29.1 pg (25.0-35.0); MCHC 32.2 g/dL (31.0-37.0); MCV 90.6 fL (80.0-100.0); Mean Platelet Volume 7.1; Monocytes # (A) 0.4 k/uL (0-1.0); Monocytes % (A) 5 %; Neutrophils # (A) 5.5 k/uL (1.3-7.7); Neutrophils % (A) 65 %; Platelet Count 390 k/uL (150-450); WBC 8.3 k/uL (3.8-10.6)
--- NOTE | 2020-06-27 16:32 | XR ---
EXAMINATION TYPE: XR chest 2V DATE OF EXAM: 06/27/2020 COMPARISON: 07/31/2019. HISTORY: Chest pain and cough. TECHNIQUE: Frontal and lateral views of the chest are obtained. FINDINGS: There is no focal air space opacity, pleural effusion, or pneumothorax seen. The cardiac silhouette size is within normal limits. The osseous structures are intact. IMPRESSION: No acute cardiopulmonary process.
[2020-06-27 16:35] LABS: ALT 22 U/L (4-34); AST 27 U/L (14-36); African American GFR (CKD) >90 (>60 ml/min/1.73 sqM); Albumin 3.8 g/dL (3.5-5.0); Alkaline Phosphatase 88 U/L (38-126); Anion Gap 9 mmol/L; Blood Urea Nitrogen 3 mg/dL (7-17); Calcium 9.2 mg/dL (8.4-10.2); Carbon Dioxide 24 mmol/L (22-30); Chloride 99 mmol/L (98-107); Glucose 127 mg/dL (74-99); Magnesium 1.8 mg/dL (1.6-2.3); Non-African American GFR(CKD) >90 (>60 ml/min/1.73 sqM); Potassium 3.9 mmol/L (3.5-5.1); Sodium 132 mmol/L (137-145); Total Bilirubin 0.3 mg/dL (0.2-1.3); Total Protein 6.5 g/dL (6.3-8.2)
[2020-06-27 16:43] LABS: D-Dimer 0.41 mg/L FEU (<0.60); INR 0.9 (<1.2); Partial Thromboplastin Time 22.3 sec (22.0-30.0); Prothrombin Time 9.6 sec (9.0-12.0)
[2020-06-27] MEDS ORDERED: NITROGLYCERIN SL TABS 0.4 MG TAB SUBLINGUAL PRN (17:19)
[2020-06-27] MEDS ORDERED: ASPIRIN 81 MG PO STA (17:19)
[2020-06-27] MEDS ORDERED: diphenhydrAMINE 50 MG/ML 1 ML VIAL IVP STA (17:47)
[2020-06-27] MEDS ORDERED: ACETAMINOPHEN TAB 325 MG TAB PO PRN (23:34)
[2020-06-28 07:54] VITALS: BP 96/68; PULSE 73; RESP 18; TEMP 97.9
--- NOTE | 2020-06-28 08:05 | P.CRDCN ---
History of Present Illness Consult date: 06/28/20 Consult reason: chest pain History of present illness: History of present illness: This is a 40-year-old with past medical history of history of gastroesophageal reflux disease, left renal atrophy, chronic anemia, multiple sclerosis the patient states that she has taken herself off her medications because the medications "make her sicker." Patient gives history of chest pain on the left side of her chest that is going on for a few days. Onset while she was in bed. She also states she has shortness of breath. 2 nights ago she had some pain in her shoulder blades but otherwise pain is been nonradiating. She states she has had sweats. No fever or chills. She has a chronic cough is unchanged. Patient is a smoker of 5 cigarettes per day for past 26 years or more. She takes wine occasionally. No illicit drug use. Patient states that she did have one episode where she developed chest pain when she was walking. Chest pain is cu rrently a 3/10. Patient had a stress echocardiogram done in March 2018 which was normal. She does not follow with a welding specialist. Patient presented to [facility] emergency center. She had aspirin in the emergency center with no improvement of pain. She did not receive nitroglycerin sublingual. Chest x-ray revealed no acute cardiopulmonary process. CBC was unremarkable. Sodium 132, potassium 3.9. BUN 3 and creatinine 0.75. Blood sugar 127. Liver function tests were normal. ProBNP 21. Troponins negative on 3 draws. Coronavirus PCR not detected. EKG was a sinus rhythm with no acute ST changes. Review Of Systems: At the time of my evaluation: Constitutional: No fever, no chills. No weakness, fatigue or lethargy. EENT: No headache. No dizziness. Lungs: No shortness of breath, reports chronic cough, no sputum production. No wheezing. Cardiovascular: Reports chest pain, reports lower extremity edema. No palpitations. No paroxysmal nocturnal dyspnea. No orthopnea. No lightheadedness or dizziness. No syncopal episodes. Abdominal: No abdominal pain. No nausea, vomiting. No diarrhea. No constipation. No bloody or tarry stools.. No loss of appetite. Musculoskeletal: No myalgias. No muscle weakness, no gait dysfunction. Integumentary: No wounds, no lesions. No rash or pruritus. No unusual bruising. Neurologic: No aphasia. No facial droop. No change in mentation. Physical examination: Gen: This is a 40-year-old female sitting in bed appears to be comfortable. HEENT: Head is atraumatic, normocephalic. Pupils equal, round. Sclerae is anicteric. NECK: Supple. No JVD. No lymphadenopathy. No thyromegaly. LUNGS: Clear to auscultation. No wheezes or rhonchi. No intercostal retractions. HEART: Regular rate and rhythm. No murmur. ABDOMEN: Soft. Bowel sounds are present. No masses. No tenderness. EXTREMITIES: No pedal edema. No calf tenderness. Dorsalis pedis +2 bilaterally. NEUROLOGICAL: Patient is awake, alert and oriented x3. Cranial nerves 2 through 12 are grossly intact. Assessment: Chest pain, acute coronary syndrome ruled out with negative troponins MS noncompliant Plan: Change full-strength aspirin to baby aspirin 81 mg daily Obtain 2-D echocardiogram and Doppler study to assess cardiac structure and func tion Avoid medications known to cause QT prolongation Further recommendations to follow based upon clinical course Thank you kindly for this consultation. Nurse practitioner note has been reviewed, I agree with documented findings and plan of care. Patient was seen and examined. Past Medical History Past Medical History: Chest Pain / Angina, GERD/Reflux, Renal Disease Additional Past Medical History / Comment(s): LEFT RENAL ATROPHY., ANEMIA, PVC'S, DDD., prolonged periods, MS History of Any Multi-Drug Resistant Organisms: None Reported Past Surgical History: Bladder Surgery, Cholecystectomy, Tonsillectomy, Tubal Ligation Additional Past Surgical History / Comment(s): LAPAROSCOPY, BLADDER SUSPENSION, INTERIOR WALL REPAIR. Past Anesthesia/Blood Transfusion Reactions: Previous Problems w/ Anesthesia Additional Past Anesthesia/Blood Transfusion Reaction / Comment(s): BP BOTTOMED OUT AFTER VERSED GIVEN Past Psychological History: No Psychological Hx Reported Smoking Status: Current every day smoker Past Alcohol Use History: Occasional, Rare Additional Past Alcohol Use History / Comment(s): Patient is a smoker of 2-10 cigarettes per day since she was 15 years of age. She denies any marijuana or street drug use. She brings alcohol occasionally. 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 Past Drug Use History: None Reported - Past Family History Sister(s) Family Medical History: Cancer Additional Family Medical History / Comment(s): Patient has 2 sisters, one from brain cancer and one from lung cancer. Mother Family Medical History: Cancer Additional Family Medical History / Comment(s): Mother of lung cancer at age 71. Father Family Medical History: Cancer, Myocardial Infarction ([place]) Additional Family Medical History / Comment(s): AT AGE 52 FROM MASSIVE [place] Brother(s) Additional Family Medical History / Comment(s): Patient has 1 brother that is alive with history of hypertension and has history of myocardial infarction. Patient has 6 children, 3 boys and 3 girls with no major medical problems. Medications and Allergies Home Medications Medication Instructions Recorded Confirmed Type Vitamin D (Unknown Strength) 1 tab PO DAILY 06/27/20 06/27/20 History Allergies Allergy/AdvReac Type Severity Reaction Status Date / Time codeine Allergy Itching Verified 06/27/20 16:54 Sulfa (Sulfonamide Allergy Anaphylaxis Verified 06/27/20 16:54 Antibiotics) adhesive tape AdvReac Unknown TEARS SKIN Verified 06/27/20 16:54 Physical Exam Vitals: Vital Signs Temp Pulse Pulse Resp BP BP Pulse Ox 06/28/20 02:00 97.8 F 75 17 103/74 97 06/27/20 19:27 98.3 F 76 17 92/62 99 06/27/20 18:15 98.3 F 75 18 107/73 97 06/27/20 17:00 77 H 119/73 94 L 06/27/20 15:40 98.5 F 108 H 20 125/92 99 Intake and Output 06/27/20 06/28/20 06/28/20 22:59 06:59 14:59 Intake Total 120 Balance 120 Intake: Oral 120 Other: Voiding Method Toilet Toilet # Voids 2 Weight 91.626 kg Results 06/27/20 16:11 06/27/20 16:11 Cardiac Enzymes 06/27/20 06/27/20 06/27/20 Range/Units 16:11 16:11 19:50 AST 27 (14-36) U/L Troponin I <0.012 <0.012 (0.000-0.034) ng/mL 06/27/20 Range/Units 22:12 AST (14-36) U/L Troponin I <0.012 (0.000-0.034) ng/mL Coagulation 06/27/20 Range/Units 16:11 PT 9.6 (9.0-12.0) sec APTT 22.3 (22.0-30.0) sec CBC 06/27/20 Range/Units 16:11 WBC 8.3 (3.8-10.6) k/uL RBC 4.20 (3.80-5.40) m/uL Hgb 12.2 (11.4-16.0) gm/dL Hct 38.0 (34.0-46.0) % Plt Count 390 (150-450) k/uL Comprehensive Metabolic Panel 06/27/20 Range/Units 16:11 Sodium 132 L (137-145) mmol/L Potassium 3.9 (3.5-5.1) mmol/L Chloride 99 (98-107) mmol/L Carbon Dioxide 24 (22-30) mmol/L BUN 3 L (7-17) mg/dL Creatinine 0.75 (0.52-1.04) mg/dL Glucose 127 H (74-99) mg/dL Calcium 9.2 (8.4-10.2) mg/dL AST 27 (14-36) U/L ALT 22 (4-34) U/L Alkaline Phosphatase 88 (38-126) U/L Total Protein 6.5 (6.3-8.2) g/dL Albumin 3.8 (3.5-5.0) g/dL Current Medications Generic Name Dose Route Start Last Admin Trade Name Freq PRN Reason Stop Dose Admin Acetaminophen 650 mg 06/27/20 23:34 Acetaminophen Tab 325 Mg Tab PO Q6HR PRN Fever and/ or Pain Aspirin 325 mg 06/28/20 09:00 Aspirin 325 Mg Tab PO DAILY JOSEY Nitroglycerin 0.4 mg 06/27/20 17:19 Nitroglycerin Sl Tabs 0.4 Mg Tab SUBLINGUAL Q5M PRN Chest Pain Intake and Output 06/27/20 06/28/20 06/28/20 22:59 06:59 14:59 Intake Total 120 Balance 120 Intake: Oral 120 Other: Voiding Method Toilet Toilet # Voids 2 Weight 91.626 kg 06/27/20 16:11 06/27/20 16:11
[2020-06-28] MEDS ORDERED: ASPIRIN 81 MG PO SCH ×2 (09:00)
[2020-06-28] MEDS ORDERED: ASPIRIN 325 MG TAB PO SCH (09:00)
[2020-06-28 09:24] LABS: Chol/HDL Ratio 4.9; LDL Cholesterol,Calculated 115.6 mg/dL (0.0-131.0); VLDL Calculation 44.4 mg/dL (5.00-40.00)
--- NOTE | 2020-06-28 11:21 | ECHOF ---
Referral Reason:LVF MEASUREMENTS -------- HEIGHT: 154.9 cm WEIGHT: 91.6 kg BP: 96/68 RVIDd: 2.8 cm (< 3.3) IVSd: 1.0 cm (0.6 - 1.1) LVIDd: 3.6 cm (3.9 - 5.3) LVPWd: 1.1 cm (0.6 - 1.1) IVSs: 1.6 cm LVIDs: 1.9 cm LVPWs: 1.4 cm LA Diam: 2.9 cm (2.7 - 3.8) Ao Diam: 3.1 cm (2.0 - 3.7) AV Cusp: 2.3 cm (1.5 - 2.6) MV EXCURSION: 15.293 mm (> 18.000) MV EF SLOPE: 62 mm/s (70 - 150) EPSS: 0.6 cm MV E Edilberto: 0.61 m/s MV DecT: 381 ms MV A Edilberto: 0.70 m/s MV E/A Ratio: 0.87 FINDINGS -------- Sinus rhythm. This was a technically good study. The left ventricular size is normal. Left ventricular wall thickness is normal. Overall left vent ricular systolic function is normal with, an EF between 60 - 65 %. The right ventricle is normal in size. Normal LA size by volume 22+/-6 ml/m2. The right atrium is normal in size. Interatrial and interventricular septum intact. The aortic valve is trileaflet and appears structurally normal. The mitral valve is normal. The tricuspid valve appears structurally normal. Trace/mild (physiologic) pulmonic regurgitation. The aortic root size is normal. Normal inferior vena cava with normal inspiratory collapse consistent with estimated right atrial pre ssure of 5 mmHg. There is no pericardial effusion. CONCLUSIONS -------- 1. The left ventricular size is normal. 2. Left ventricular wall thickness is normal. 3. Overall left ventricular systolic function is normal with, an EF between 60 - 65 %. 4. Trace/mild (physiologic) pulmonic regurgitation. ARTISTIC ASSOCIATE: Geraldine Urbano [facility]
--- NOTE | 2020-06-28 18:21 | P.HPIM ---
History of Present Illness H&P Date: 06/28/20 This will serve both an H&P and discharge summary This is a pleasant 40-year-old pleasant lady patient of Dr. Heart. She has underlying history of multiple sclerosis, under the third care of Dr. Lieberman. Chronic anemia, chronic cough, currently a smoker. Patient complained of midsternal chest pain, without any regurgitation. She denies any cardiac history, however she has history of GERD, and chronic anemia, last stress test was March 2018 which was normal, she also has shortness of breath on exertion, she does not have any pulmonary doctor for which she refused to see any physician on a routine basis. Patient does not have any fever no chills, patient has prior cholecystectomy secondary to gallbladder stones. She now comes in the emergency room secondary to chest pain which is occurring during rest. Patient does not have any chest or wall motion pain, no breast pain, no pleurisy. However she has chronic cough. No fever no chills, no lightheadedness., there is a significant family history of DE father, in the 50s, and also for lung cancer in the family which is a mother, and a sister both has lung cancer. Patient was subsequently seen in the emergency room, troponins are all negative 3, creatinine and CBC is normal, INR of 0.9, LDL of 1:15, triglyceride of 222, she is tested negative for covid virus. She was seen by cardiology during this admission, and was deemed clear for discharge, with outpatient stress test. Echocardiogram reviewed while in hospital, EF of 60-65, mild LA, no pulmonary hypertension, patient was offered to see pulmonary medicine as an outpatient, Dr. Patel for which she might want to keep that appointment if we made one, she also refuses anything done for her chronic cough for the past 20 years, refuse any inhalers for her shortness of breath with exertion, refused any nicotine replacement program, her current x-ray shows no acute pulmonary processes. She also has chronic GERD, for which she can take [id number] medications, aspirin is recommended by cardiology for discharge, until outpatient stress test. Review of Systems Constitutional: Reports as per HPI, Denies anorexia, Denies chills, Denies chronic headaches, Denies chronic pain, Denies daytime sleepiness, Denies fatigu e, Denies fever, Denies lethargy, Denies malaise, Denies night sweats, Denies poor appetite, Denies sweats, Denies weakness, Denies weight gain, Denies weight loss Ears, nose, mouth and throat: Reports as per HPI, Reports hoarseness, Reports post-nasal drip Cardiovascular: Reports chest pain Respiratory: Reports cough, Denies as per HPI, Denies congestion, Denies cough with sputum, Denies dyspnea, Denies excessive sputum, Denies hemoptysis, Denies home oxygen, Denies pain, Denies pain on inspiration, Denies pleurisy, Denies respiratory infections, Denies sleep apnea, Denies snoring, Denies wheezing Gastrointestinal: Denies as per HPI, Denies abdominal pain, Denies belching, Denies bloating, Denies BRBPR, Denies change in bowel habits, Denies coffee ground emesis, Denies constipation, Denies diarrhea, Denies dyspepsia, Denies early satiety, Denies excessive gas, Denies heartburn, Denies hematemesis, Denies hematochezia, Denies indigestion, Denies jaundice, Denies lactose intolerance, Denies loss of appetite, Denies melena, Denies nausea, Denies vomiting Genitourinary: Reports as per HPI Menstruation: Reports as per HPI Musculoskeletal: Reports as per HPI Integumentary: Reports as per HPI Neurological: Reports as per HPI Psychiatric: Reports as per HPI Endocrine: Reports as per HPI, Denies cold intolerance, Denies deepening of the voice, Denies excessive sweating, Denies excessive thirst, Denies fatigue, Denies flushing, Denies heat intolerance, Denies high blood sugars, Denies increase in ring/shoe/hat size, Denies low blood sugars, Denies nocturia, Denies palpitations, Denies polydipsia, Denies polyphagia, Denies polyuria, Denies proptosis, Denies recent glucocorticoid use, Denies thyroid mass, Denies weight change Hematologic/Lymphatic: Reports as per HPI Allergic/Immunologic: Reports as per HPI, Denies allergic rhinitis, Denies anaphylaxis, Denies angioedema, Denies gluten intolerance, Denies persistent infections, Denies seasonal allergies, Denies urticaria, Denies wheezing Past Medical History Past Medical History: Chest Pain / Angina, GERD/Reflux, Renal Disease Additional Past Medical History / Comment(s): LEFT RENAL ATROPHY., ANEMIA, PVC'S, DDD., prolonged periods, MS History of Any Multi-Drug Resistant Organisms: None Reported Past Surgical History: Bladder Surgery, Cholecystectomy, Tonsillectomy, Tubal Ligation Additional Past Surgical History / Comment(s): LAPAROSCOPY, BLADDER SUSPENSION, INTERIOR WALL REPAIR. Past Anesthesia/Blood Transfusion Reactions: Previous Problems w/ Anesthesia Additional Past Anesthesia/Blood Transfusion Reaction / Comment(s): BP BOTTOMED OUT AFTER VERSED GIVEN Past Psychological History: No Psychological Hx Reported Smoking Status: Current every day smoker Past Alcohol Use History: Occasional, Rare Additional Past Alcohol Use History / Comment(s): Patient is a smoker of 2-10 cigarettes per day since she was 15 years of age. She denies any marijuana or street drug use. She brings alcohol occasionally. 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 Past Drug Use History: None Reported - Past Family History Sister(s) Family Medical History: Cancer Additional Family Medical History / Comment(s): Patient has 2 sisters, one from brain cancer and one from lung cancer. Mother Family Medical History: Cancer Additional Family Medical History / Comment(s): Mother of lung cancer at age 71. Father Family Medical History: Cancer, Myocardial Infarction ([place]) Additional Family Medical History / Comment(s): AT AGE 52 FROM MASSIVE [place] Brother(s) Additional Family Medical History / Comment(s): Patient has 1 brother that is alive with history of hypertension and has history of myocardial infarction. Patient has 6 children, 3 boys and 3 girls with no major medical problems. Medications and Allergies Home Medications Medication Instructions Recorded Confirmed Type Vitamin D (Unknown Strength) 1 tab PO DAILY 06/27/20 06/27/20 History Acetaminophen Tab [Tylenol] 650 mg PO Q6HR PRN tab 06/28/20 Rx Aspirin 81 mg PO DAILY chew 06/28/20 Rx Allergies Allergy/AdvReac Type Severity Reaction Status Date / Time codeine Allergy Itching Verified 06/27/20 16:54 Sulfa (Sulfonamide Allergy Anaphylaxis Verified 06/27/20 16:54 Antibiotics) adhesive tape AdvReac Unknown TEARS SKIN Verified 06/27/20 16:54 Physical Exam Vitals: Vital Signs Temp Pulse Pulse Resp BP BP Pulse Ox 06/28/20 07:37 97.9 F 73 18 96/68 99 06/28/20 02:00 97.8 F 75 17 103/74 97 06/27/20 19:27 98.3 F 76 17 92/62 99 06/27/20 18:15 98.3 F 75 18 107/73 97 06/27/20 17:00 77 H 119/73 94 L 06/27/20 15:40 98.5 F 108 H 20 125/92 99 Intake and Output 06/27/20 06/28/20 06/28/20 22:59 06:59 14:59 Intake Total 120 Balance 120 Intake: Oral 120 Other: Voiding Method Toilet Toilet Toilet # Voids 2 Weight 91.626 kg - Constitutional General appearance: cooperative, no acute distress - EENT Eyes: EOMI, PERRLA, dentition normal, normal appearance ENT: NA/AT, normal oropharynx - Neck Neck: normal ROM - Respiratory Respiratory: bilateral: CTA, negative: diminished, dullness, rales - Cardiovascular Rhythm: regular Heart sounds: normal: S1, S2 Abnormal Heart Sounds: no systolic murmur, no diastolic murmur, no rub, no S3 Gallop, no S4 Gallop, no click, no other - Gastrointestinal General gastrointestinal: normal bowel sounds, soft - Integumentary Integumentary: normal, normal turgor - Neurologic Neurologic: CNII-XII intact - Musculoskeletal Musculoskeletal: gait normal, strength equal bilaterally - Psychiatric Psychiatric: A&O x's 3, appropriate affect, intact judgment & insight Results CBC & Chem 7: 06/27/20 16:11 06/27/20 16:11 Labs: Abnormal Lab Results - Last 24 Hours (Table) 06/27/20 06/27/20 Range/Units 16:01 16:11 Sodium 132 L (137-145) mmol/L BUN 3 L (7-17) mg/dL Glucose 127 H (74-99) mg/dL Triglycerides 222.0 H (0.0-149.0) mg/dL Cholesterol 201 H (0-200) mg/dL VLDL Cholesterol, Calc 44.40 H (5.00-40.00) mg/dL Laboratory Results WBC 8.3 k/uL (3.8-10.6) 06/27/20 16:11 RBC 4.20 m/uL (3.80-5.40) 06/27/20 16:11 Hgb 12.2 gm/dL (11.4-16.0) 06/27/20 16:11 Hct 38.0 % (34.0-46.0) 06/27/20 16:11 MCV 90.6 fL (80.0-100.0) 06/27/20 16:11 MCH 29.1 pg (25.0-35.0) 06/27/20 16:11 MCHC 32.2 g/dL (31.0-37.0) 06/27/20 16:11 RDW 15.0 % (11.5-15.5) 06/27/20 16:11 Plt Count 390 k/uL (150-450) 06/27/20 16:11 MPV 7.1 06/27/20 16:11 Neutrophils % 65 % 06/27/20 16:11 Lymphocytes % 24 % 06/27/20 16:11 Monocytes % 5 % 06/27/20 16:11 Eosinophils % 4 % 06/27/20 16:11 Basophils % 1 % 06/27/20 16:11 Neutrophils # 5.5 k/uL (1.3-7.7) 06/27/20 16:11 Lymphocytes # 2.0 k/uL (1.0-4.8) 06/27/20 16:11 Monocytes # 0.4 k/uL (0-1.0) 06/27/20 16:11 Eosinophils # 0.4 k/uL (0-0.7) 06/27/20 16:11 Basophils # 0.1 k/uL (0-0.2) 06/27/20 16:11 PT 9.6 sec (9.0-12.0) 06/27/20 16:11 INR 0.9 (<1.2) 06/27/20 16:11 APTT 22.3 sec (22.0-30.0) 06/27/20 16:11 D-Dimer 0.41 mg/L FEU (<0.60) 06/27/20 16:11 Sodium 132 mmol/L (137-145) L 06/27/20 16:11 Potassium 3.9 mmol/L (3.5-5.1) 06/27/20 16:11 Chloride 99 mmol/L (98-107) 06/27/20 16:11 Carbon Dioxide 24 mmol/L (22-30) 06/27/20 16:11 Anion Gap 9 mmol/L 06/27/20 16:11 BUN 3 mg/dL (7-17) L 06/27/20 16:11 Creatinine 0.75 mg/dL (0.52-1.04) 06/27/20 16:11 Est GFR (CKD-EPI)AfAm >90 (>60 ml/min/1.73 sqM) 06/27/20 16:11 Est GFR (CKD-EPI)NonAf >90 (>60 ml/min/1.73 sqM) 06/27/20 16:11 Glucose 127 mg/dL (74-99) H 06/27/20 16:11 Calcium 9.2 mg/dL (8.4-10.2) 06/27/20 16:11 Magnesium 1.8 mg/dL (1.6-2.3) 06/27/20 16:11 Total Bilirubin 0.3 mg/dL (0.2-1.3) 06/27/20 16:11 AST 27 U/L (14-36) 06/27/20 16:11 ALT 22 U/L (4-34) 06/27/20 16:11 Alkaline Phosphatase 88 U/L (38-126) 06/27/20 16:11 Troponin I <0.012 ng/mL (0.000-0.034) 06/27/20 22:12 NT-Pro-B Natriuret Pep 21 pg/mL 06/27/20 16:11 Total Protein 6.5 g/dL (6.3-8.2) 06/27/20 16:11 Albumin 3.8 g/dL (3.5-5.0) 06/27/20 16:11 Triglycerides 222.0 mg/dL (0.0-149.0) H 06/27/20 16:01 Cholesterol 201 mg/dL (0-200) H 06/27/20 16:01 LDL Cholesterol, Calc 115.6 mg/dL (0.0-131.0) 06/27/20 16:01 VLDL Cholesterol, Calc 44.40 mg/dL (5.00-40.00) H 06/27/20 16:01 HDL Cholesterol 41.0 mg/dL (40.0-60.0) 06/27/20 16:01 Cholesterol/HDL Ratio 4.90 06/27/20 16:01 Coronavirus (PCR) Not Detected (Not Detectd) 06/27/20 16:11 Assessment and Plan Plan: 1. Atypical chest pain, ruled out DE, family is high risk, for young DE, also risk for lung cancer in the family, currently is a smoker, patient will undergo outpatient stress echo as recommended by cardiology, 2. Chronic cough for the past 20 years, need for investigation for this, currently a smoker of shelter tobacco exposure between 5-6 cigarettes per day, education was provided, refused imaging studies to CT, diffuse any inhalers for the shortness of breath on exertion, refused any upper splenic for suspected ALLERGIC As well. 3. Chronic fatigue, with poor sleep hygiene, 4. History of MS, follows with Dr. Damon now compliance medications, she is given Provigil for vigilance only when necessary, not on any routine MS drug. 5. Family history of DE in the 50s father 6. Family history of lung cancer mother, and sister Family history of asthma, son Follow-up with cardiology, with outpatient stress test Follow-up with Dr. Potter Follow-up with Dr. Patel to establish evaluation for chronic cough and dyspnea on exertion Keep appointment with Dr. Damon for MS Discharge Medication List Vitamin D (Unknown Strength) 1 tab PO DAILY 06/27/20 [History] Acetaminophen Tab [Tylenol] 650 mg PO Q6HR PRN tab 06/28/20 [Rx] Aspirin 81 mg PO DAILY chew 06/28/20 [Rx]
== END 2020-06-28 14:00 | disposition home or self-care (01) ==
LOC: EC 15:36 → 6NMEDSUR 17:20
PROVIDERS: ADMIT Family Medicine; ATTEND Family Medicine
DX: R07.89 Other chest pain (principal); R06.02 Shortness of breath; R05 Cough; R53.82 Chronic fatigue, unspecified; G35 Multiple sclerosis; Z91.14 Patient's other noncompliance with medication regimen; E87.1 Hypo-osmolality and hyponatremia; K21.9 Gastro-esophageal reflux disease without esophagitis; D64.9 Anemia, unspecified; N26.1 Atrophy of kidney (terminal); F17.210 Nicotine dependence, cigarettes, uncomplicated; I49.3 Ventricular premature depolarization; Z20.828 Contact with and (suspected) exposure to other viral communicable diseases; Z82.49 Family history of ischemic heart disease and other diseases of the circulatory system; Z88.5 Allergy status to narcotic agent; Z88.2 Allergy status to sulfonamides; Z91.048 Other nonmedicinal substance allergy status; Z90.49 Acquired absence of other specified parts of digestive tract; Z98.51 Tubal ligation status; Z80.1 Family history of malignant neoplasm of trachea, bronchus and lung; Z80.8 Family history of malignant neoplasm of other organs or systems; Z82.5 Family history of asthma and other chronic lower respiratory diseases
CPT/HCPCS: 93005 ×2; 96374; 99285; 36415; 93306; 85379; 83880; 80061; 80053; 83735; 84484; 85025; 85610; 85730; 87635; 71046; G0378 ×2; J1200

== ENCOUNTER → 2022-10-06 | Outpatient (CLI) | payer OTHER ==
[2022-10-07 02:06] LABS: Protein, Total 6.9 g/dL (6.2-8.2)
[2022-10-07 02:26] LABS: Basophils # (A) 0.05 X 10*3/uL (0.00-0.10); Basophils % (A) 0.6 %; Eosinophils # (A) 0.23 X 10*3/uL (0.04-0.35); Eosinophils % (A) 2.8 %; HCT 39.6 % (37.2-46.3); HGB 12.1 g/dL (12.0-15.0); Immature Grans, Automated 0.6 %; Lymphocytes # (A) 2.13 X 10*3/uL (0.90-5.00); Lymphocytes % (A) 26.3 %; MCH 26.7 pg (27.0-32.0); MCHC 30.6 g/dL (32.0-37.0); MCV 87.4 fL (80.0-97.0); Mean Platelet Volume 9.7 fL (9.5-12.2); Monocytes # (A) 0.49 X 10*3/uL (0.20-1.00); Monocytes % (A) 6.1 %; NRBC Per 100 WBC 0 /100 WBCS (0.0-0.0); Neutrophils # (A) 5.14 X 10*3/uL (1.80-7.70); Neutrophils % (A) 63.6 %; Platelet Count 444 X 10*3/uL (140-440); RBC 4.53 X 10*6/uL (4.10-5.20); RDW 17.8 % (11.5-14.5); WBC 8.09 X 10*3/uL (4.50-10.00)
[2022-10-07 02:45] LABS: Hepatitis B Surface Antigen Nonreactive (Nonreactive); Hepatitis C IgG Antibody Nonreactive (Nonreactive)
[2022-10-07 02:56] LABS: % Iron Saturation 6.72 (12.00-45.00); African American GFR (CKD) 88.9 (60.0-200.0); Albumin 4.3 g/dL (3.8-4.9); Albumin/Globulin Ratio 1.85 (1.60-3.17); Anion Gap 12.9 mmol/L (10.00-18.00); BUN/Creat Ratio 5.87 Ratio (12.00-20.00); Blood Urea Nitrogen 5.4 mg/dL (9.0-27.0); Calcium 9.7 mg/dL (8.7-10.3); Carbon Dioxide 24.7 mmol/L (20.0-27.5); Ferritin 27.5 ng/mL (10.0-291.0); Globulin 2.3 g/dL (1.6-3.3); Non-African American GFR(CKD) 76.7 (60.0-200.0); Potassium 4.8 mmol/L (3.5-5.5); Total Bilirubin 0.2 mg/dL (0.30-1.20); Total Protein 6.7 g/dL (6.2-8.2)
[2022-10-07 16:14] LABS: Albumin 4.19 g/dL (3.80-4.90); Gamma Globulin 0.72 g/dL (0.70-1.50)
== END | disposition home or self-care (01) ==
LOC: LABWHC1 14:24
PROVIDERS: ATTEND Nurse Practitioner Family
DX: K76.0 Fatty (change of) liver, not elsewhere classified (principal)
CPT/HCPCS: 36415; 80053; 82728; 83516; 83540; 83550; 84165; 85025; 86038; 86803; 87340

== ENCOUNTER → 2022-10-18 | Outpatient (CLI) | payer OTHER ==
[2022-10-18 16:02] LABS: Chol/HDL Ratio 5.07 Ratio; LDL Cholesterol,Calculated 157.9 mg/dL
== END | disposition home or self-care (01) ==
LOC: LABWHC1 10:26
PROVIDERS: ATTEND Nurse Practitioner Family
DX: K76.0 Fatty (change of) liver, not elsewhere classified (principal)
CPT/HCPCS: 36415; 80061

== ENCOUNTER → 2024-02-16 | Outpatient (CLI) | payer MEDICARE, OTHER ==
--- NOTE | 2024-02-17 17:44 | PE ---
EXAMINATION TYPE: PET CT fusion skull to thigh DATE OF EXAM: 02/16/2024 CLINICAL INDICATION:Female, 43 years old with history of R91.1 SPN; TECHNIQUE: Following the intravenous administration of 12.88 mCi of F-18 FDG, whole body images are performed from the skull base to the midthigh. Images are reviewed on the computer in the coronal, axial, and sagittal planes. Reconstructed rotating images are created on independent workstation and reviewed on the computer. A non-contrast CT is performed in conjunction with the PET scan. Glucose level 88 mg/dL CT DLP: 993.06 mGycm, Automated exposure control for dose reduction was used. COMPARISON: CT 03/28/2013, PET/CT None, MRI: None FINDINGS: Mediastinal SUV mean is . Hepatic parenchyma SUV mean is . SKULL BASE AND NECK: No suspicious radiotracer activity. CHEST, MEDIASTINUM, AND HILAR REGION: No suspicious radiotracer activity. ABDOMEN AND PELVIS: No suspicious radiotracer activity. MUSCULOSKELETAL STRUCTURES: No suspicious radiotracer activity. OTHER CT: No sizable pulmonary nodules definitively identified. Largest nodule identified measuring u p 3 mm which is below sensitivity of PET/CT. No recent available comparison imaging. Postcholecystect marco changes. Elevation the right hemidiaphragm. Atrophy of the left kidney. Bilateral tubal ligation clips. Sclerosis around both SI joints. IMPRESSION: No suspicious radiotracer activity. No sizable pulmonary nodules identified. No recent priors were av ailable. [facility], , 02/17/2024 5:41 PM
== END | disposition home or self-care (01) ==
LOC: RADPETMAIN 09:15
PROVIDERS: ATTEND Internal Medicine Sleep Medicine
DX: R91.1 Solitary pulmonary nodule (principal)
CPT/HCPCS: 78815; A9552